=== PATIENT | female | born 1945 | race Caucasian/White ===

== ENCOUNTER → 2016-12-11 | Outpatient (CLI) | payer BC ==
[~2016-12-11] MED LIST: CHOL400C7 PO; CLTP PO; DRV100 PO; FLV1 PO; HYDR200T5 PO; META1TAB22 PO; METH2.5T PO; METHOTREXATE; NXM/40 PO; OXAP600T PO; PRED-301 PO; RANI150T3 PO; TIMO0.2528 OPB; TRAM-10 PO
[2016-12-11 16:45] LABS: BASO % 0.3 %; BASO ABS # 0.02 K/uL (0-0.2); COMPLETE YES; EOS % 3.5 %; HEMATOCRIT 36.1 % (37-47); IG% 0.1 %; LYMPH % 11.1 %; LYMPH ABS # 0.77 K/uL (1.2-3.4); MEAN CELL VOLUME 85.1 fL (80-100); MEAN CORPUSCULAR HEMOGLOBIN 26.4 pg (25-34); MONO % 5.4 %; NEUT % 79.6 %; PLATELET COUNT 270 K/uL (130-400); RED BLOOD COUNT 4.24 M/uL (4.2-5.4); WHITE BLOOD COUNT 6.91 K/uL (4.8-10.8)
[2016-12-11 17:04] LABS: ALT/SGPT 29 U/L (12-78); BLOOD UREA NITROGEN 28 mg/dl (7-18); BUN/CREATININE RATIO 30.8 (10-20); CALCIUM 8.9 mg/dl (8.5-10.1); CARBON DIOXIDE 28 mmol/L (21-32); CHLORIDE 105 mmol/L (98-107); CREATININE 0.91 mg/dl (0.60-1.20); GLUCOSE 117 mg/dl (70-99); POTASSIUM 4.3 mmol/L (3.5-5.1); SODIUM 142 mmol/L (136-145)
[2016-12-11 17:14] LABS: ALB/GLOB RATIO 1.1 (0.9-2); ALKALINE PHOSPHATASE 56 U/L (45-117); AST/SGOT 35 U/L (15-37)
[2016-12-12 05:53] LABS: ESTIMATED AVERAGE GLUCOSE 120 mg/dl; HA1C FLAG Normal (Normal)
== END | disposition home or self-care (01) ==
LOC: C.LAB1850 15:28
PROVIDERS: ATTEND Internal Medicine
DX: R60.0 Localized edema (principal); R73.03 Prediabetes; M06.9 Rheumatoid arthritis, unspecified; Z79.899 Other long term (current) drug therapy; Z79.52 Long term (current) use of systemic steroids; M77.40 Metatarsalgia, unspecified foot

== ENCOUNTER → 2017-02-06 | Outpatient (CLI) | payer BC ==
--- NOTE | 2017-02-06 15:41 | MAMMOGRAPHY REPORT ---
BILATERAL DIGITAL SCREENING MAMMOGRAM WITH CAD: 02/06/2017 TECHNIQUE: Current study was also evaluated with a Computer Aided Detection (CAD) system. Bilatera l CC and MLO views were obtained. COMPARISON: Comparison is made to exams dated: 01/18/2016 mammogram, 01/12/2015 mammogram, 01/06/2014 m ammogram, 12/15/2012 mammogram, 12/05/2011 mammogram, and 11/22/2010 mammogram - [facility] enter. BREAST COMPOSITION: There are scattered areas of fibroglandular density in both breasts. FINDINGS: No suspicious masses, calcifications, or areas of architectural distortion are noted in e ither breast. There has been no significant interval change compared to prior exams. Scattered bilat eral benign-appearing calcifications are not significantly changed. IMPRESSION: ACR BI-RADS CATEGORY 2: BENIGN There is no mammographic evidence of malignancy. A 1 year screening mammogram is recommended. The p atient will receive written notification of the results. Approximately 10% of breast cancers are not detected with mammography. A negative mammographic repor t should not delay biopsy if a clinically suggestive mass is present. Anna Marie Srinivasan M.D. ah/:02/06/2017 14:44:42 Reaming Machine Tender: Mariya HOWELL(Antonietta)(Gladis), [facility] letter sent: Normal 1/2 BI-RADS Code: ACR BI-RADS Category 2: Benign
== END | disposition home or self-care (01) ==
LOC: C.MAMM 11:48
PROVIDERS: ATTEND Obstetrics & Gynecology
DX: Z12.31 Encounter for screening mammogram for malignant neoplasm of breast (principal)

== ENCOUNTER → 2017-03-12 | Outpatient (CLI) | payer BC ==
[2017-03-12 17:42] LABS: BASO % 0.3 %; BASO ABS # 0.02 K/uL (0-0.2); COMPLETE YES; EOS % 2.8 %; HEMATOCRIT 36.8 % (37-47); IG% 0.3 %; LYMPH % 7.9 %; LYMPH ABS # 0.58 K/uL (1.2-3.4); MEAN CORPUSCULAR HEMOGLOBIN 26.7 pg (25-34); MEAN CORPUSCULAR HGB CONC 30.7 g/dl (32-36); MEAN PLATELET VOLUME 10.1 fL (7.4-10.4); NEUT % 82.7 %; PLATELET COUNT 278 K/uL (130-400); RED BLOOD COUNT 4.23 M/uL (4.2-5.4); WHITE BLOOD COUNT 7.37 K/uL (4.8-10.8)
[2017-03-12 18:10] LABS: ALT/SGPT 21 U/L (12-78); AST/SGOT 24 U/L (15-37); CREATININE 0.96 mg/dl (0.60-1.20)
[2017-03-12 18:13] LABS: ALKALINE PHOSPHATASE 53 U/L (45-117)
== END | disposition home or self-care (01) ==
LOC: C.LAB1850 15:42
PROVIDERS: ATTEND Internal Medicine Rheumatology
DX: M06.9 Rheumatoid arthritis, unspecified (principal); M89.8X6 Other specified disorders of bone, lower leg; Z79.52 Long term (current) use of systemic steroids; Z79.899 Other long term (current) drug therapy; R73.03 Prediabetes

== ENCOUNTER → 2017-05-26 | Day surgery (SDC) | payer BC ==
[2017-05-16 12:41] VITALS: BMI 40.0
[~2017-05-26] VITALS: Ht 154.9 cm; Wt 94.5 kg
[~2017-05-26] MED LIST changes: -DRV100 PO; +LIDOCAINE HCL 2% 2 ML VIAL (20MG/ML) ONE; -METHOTREXATE; +MIDAZOLAM HCL 1 MG/ML 2ML VIAL ONE; +PROPOFOL IV EMULSION 10 MG/ML 20 ML VIAL IV ONE; +SODIUM CHLORIDE 0.9% 500ML 500 ML IV ONE
[2017-05-26 09:54] VITALS: Ht 154.9 cm; Wt 94.5 kg
--- NOTE | 2017-05-26 10:12 | Endo History and Physical ---
History & Physical Date of Service: May 26, 2017. Chief Complaint: Hx polyps Referring Physician: Dr. Lo History of Present Illness 71 yo CF who presents for colonoscopy secondary to history of colon polyps. Past Surgical History Hx Cardiac Surgery: No Hx Internal Defibrillator: No Hx Pacemaker: No Hx Abdominal Surgery: No Hx of Implantable Prosthesis: No Hx Post-Op Nausea and Vomiting: No Hx Cancer Surgery: No Hx Thoracic Surgery: No Hx Orthopedic: Yes (L4-5-S1 DECOMPRESSION FUSION) Hx Urinary Tract Surgery: No Family History None Social History Smoking Status: Never Smoker Hx Substance Use: No Hx Alcohol Use: No Allergies Coded Allergies: Adhesives (Verified Allergy, Unknown, BLISTERS, 05/16/17) Uncoded Allergies: MYOCRISENE (Allergy, Unknown, SPACES HER OUT, 05/16/17) "GOLD SALT" Current Medications Reported Home Medications Medications Dose Route/Sig Max Daily Dose Days Date Category Dose Instructions Zantac (Ranitidine HCl) 150 Mg Tab 150 Mg PO DAILY PRN 05/16/17 Reported Vitamin D 400 Iu (Cholecalciferol) 400 Unit Cap 400 Inter.unit PO BID 05/16/17 Reported Ultram (Tramadol HCl) 50 Mg Tab 50 Mg PO Q4H PRN 05/16/17 Reported Methotrexate 2.5 Mg Tab 4 Tabs PO TUES 05/16/17 Reported Nexium (Esomeprazole Magnesium) 40 Mg Capcr 40 Mg PO QAM 05/16/17 Reported Plaquenil (Hydroxychloroquine Sulfate) 200 Mg Tab 200 Mg PO BID 05/16/17 Reported Daypro (Oxaprozin) 600 Mg Tab 600 Mg PO BID 05/16/17 Reported Timoptic 0.25% Oph (Timolol Maleate) Soln 1 Drop OPB QAM 06/17/08 Reported Caltrate 600 Plus * (Calcium/Vitamin D) Tab 1 Tab PO BID 06/17/08 Reported Folvite * (Folic Acid) 1 Mg Tab 1 Mg PO 6XWK 06/17/08 Reported SUN,MON,WED,THURS,FRI,SAT Skelaxin (Metaxalone) 800 Mg Tab 800 Mg PO QID PRN 06/17/08 Reported Prednisone 5 Mg Tab 5 Mg PO QAM 06/17/08 Reported Vital Signs Weight (Kilograms): 94.55 Height (Feet): 5 Height (Inches): 1 Date Time Temp Pulse Resp B/P (MAP) Pulse Ox O2 Delivery O2 Flow Rate FiO2 05/26/17 10:08 36.9 71 20 141/72 (95) 100 Room Air Physical Exam General Appearance: WD/WN, no apparent distress Respiratory/Chest: Auscultation: breath sounds normal Cardiovascular: Heart Auscultation: RRR Abdomen: Bowel Sounds: normal Inspection & Palpation: soft, non-distended, no tenderness, guarding & rebound Assessment and Plan Assessment: 71 yo CF who presents for colonoscopy secondary to history of colon polyps. Plan: Proceed with colonoscopy.
--- NOTE | 2017-05-26 10:51 | Discharge Instructions ---
Endoscopy Patient Instructions Date / Procedure(s) Performed May 26, 2017. Colonoscopy Allergy Information Coded Allergies: Adhesives (Verified Allergy, Unknown, BLISTERS, 05/16/17) Uncoded Allergies: MYOCRISENE (Allergy, Unknown, SPACES HER OUT, 05/16/17) "GOLD SALT" Discharge Date / Findings May 26, 2017. Diverticulosis Internal hemorrhoids Medication Instructions OK to resume all medications today as prescribed Reported Home Medications Medications Dose Route/Sig Max Daily Dose Days Date Category Dose Instructions Zantac (Ranitidine HCl) 150 Mg Tab 150 Mg PO DAILY PRN 05/16/17 Reported Vitamin D 400 Iu (Cholecalciferol) 400 Unit Cap 400 Inter.unit PO BID 05/16/17 Reported Ultram (Tramadol HCl) 50 Mg Tab 50 Mg PO Q4H PRN 05/16/17 Reported Methotrexate 2.5 Mg Tab 4 Tabs PO TUES 05/16/17 Reported Nexium (Esomeprazole Magnesium) 40 Mg Capcr 40 Mg PO QAM 05/16/17 Reported Plaquenil (Hydroxychloroquine Sulfate) 200 Mg Tab 200 Mg PO BID 05/16/17 Reported Daypro (Oxaprozin) 600 Mg Tab 600 Mg PO BID 05/16/17 Reported Timoptic 0.25% Oph (Timolol Maleate) Soln 1 Drop OPB QAM 06/17/08 Reported Caltrate 600 Plus * (Calcium/Vitamin D) Tab 1 Tab PO BID 06/17/08 Reported Folvite * (Folic Acid) 1 Mg Tab 1 Mg PO 6XWK 06/17/08 Reported SUN,MON,WED,THURS,FRI,SAT Skelaxin (Metaxalone) 800 Mg Tab 800 Mg PO QID PRN 06/17/08 Reported Prednisone 5 Mg Tab 5 Mg PO QAM 06/17/08 Reported Provider Instructions Activity Restrictions - No exercising or heavy lifting for 24 hours. - Do not drink alcohol the day of the procedure. - Do not drive a car or operate machinery until the day after the procedure. - Do not make any important decisions or sign important papers in 24 hours after the procedure. Following Day: - Return to full activity which may include returning to work/school. Diet Start your diet with liquids and light foods (jello, soup, juice, toast). Then eat your usual diet if not nauseated. Treatment For Common After Affects For mild abdominal pain, bloating, or excessive gas: - Rest - Eat lightly - Lie on right side Follow-Up Information Follow-up with Dr. Lo as scheduled Anesthesia Information What You Should Know You have had a procedure that required some medicine to reduce anxiety and discomfort. This treatment is called moderate sedation. After receiving the treatment, you may be sleepy, but you will be able to breathe on your own. The effects of the treatment may last for several hours. Follow these instructions along with Activity/Diet recommendations noted above: * Do NOT do anything where dizziness or clumsiness would be dangerous. * Rest quietly at home today, then you can be up and about tomorrow. * Have a responsible person stay with you the rest of today. * You may have had an I.V. today. If so, you may take the dressing off later today. Recommendations Call your doctor if: * Trouble breathing * Continuous vomiting for more than 24 hours * Temperature above 101 degrees * Severe abdominal pain or bloating * Pain not relieved by pain medicine ordered * There is increased drainage or redness from any incision * A large amount of rectal bleeding greater than 2-3 tablespoons. (If you had a polyp/s removed or have hemorrhoids, a small amount of blood - from the rectum is to be expected.) * You have any unanswered questions or concerns. IN THE EVENT OF A SERIOUS EMERGENCY, GO TO THE NEAREST EMERGENCY ROOM Your discharge instructions were prepared by provider Chauncey Snyder. Patient Instructions Signature Page Soni Dumont Patient (or Guardian) Signature/Date: I have read and understand the instructions given to me by my caregivers. Caregiver/RN/Doctor Signature/Date: The above-named patient and/or guardian has received patient instructions on this date. + Original Patient Signature Page (only) stays with chart. Please make copy for patient.
--- NOTE | 2017-05-26 11:00 | GI REPORT ---
Procedure Date: 05/26/2017 10:23 AM Procedure: Colonoscopy Indications: Screening for colorectal malignant neoplasm Medicines: Monitored Anesthesia Care Complications: No immediate complications. Estimated Blood Loss: Estimated blood loss: none. Procedure: Pre-Anesthesia Assessment: - Prior to the procedure, a History and Physical was performed, and patient medications and allergies were reviewed. The patient's tolerance of previous anesthesia was also reviewed. The risks and benefits of the procedure and the sedation options and risks were discussed with the patient. All questions were answered, and informed consent was obtained. Prior Anticoagulants: The patient has taken no previous anticoagulant or antiplatelet agents. ASA Grade Assessment: III - A patient with severe systemic disease. After reviewing the risks and benefits, the patient was deemed in satisfactory condition to undergo the procedure. After I obtained informed consent, the scope was passed under direct vision. Throughout the procedure, the patient's blood pressure, pulse, and oxygen saturations were monitored continuously. The On-site loaner was introduced through the anus and advanced to the terminal ileum. The colonoscopy was performed without difficulty. The patient tolerated the procedure well. The quality of the bowel preparation was good. The terminal ileum, ileocecal valve, appendiceal orifice, and rectum were photographed. Findings: Multiple small-mouthed diverticula were found in the sigmoid colon. Non-bleeding internal hemorrhoids were found during retroflexion. The hemorrhoids were small. Impression: - Diverticulosis in the sigmoid colon. - Non-bleeding internal hemorrhoids. - No specimens collected. Recommendation: - Resume previous diet. - Continue present medications. - No repeat colonoscopy due to age and the absence of advanced adenomas. - Return to primary care physician as previously scheduled. Chauncey Snyder DO 05/26/2017 10:59:05 AM This report has been signed electronically. Note Initiated On: 05/26/2017 10:23 AM I attest to the content of the Intraoperative Record and orders documented therein, exceptions below
[2017-05-26 11:26] VITALS: BP 119/75; PULSE 77; O2SAT 99
--- NOTE | 2017-05-26 11:40 | Anesthesiology Progress Note ---
Anesthesia Post Op Note Date & Time May 26, 2017 at 11:40 Vital Signs Pain Intensity: 0 Vital Signs Past 12 Hours Date Time Temp Pulse Resp B/P (MAP) Pulse Ox O2 Delivery O2 Flow Rate FiO2 05/26/17 11:26 77 20 119/75 (90) 99 Room Air 05/26/17 11:06 77 20 111/79 (90) 99 Room Air 05/26/17 10:51 77 20 134/72 (92) 99 Room Air 05/26/17 10:08 36.9 71 20 141/72 (95) 100 Room Air Notes Mental Status: alert / awake / arousable, participated in evaluation Pt Amnestic to Procedure: Yes Nausea / Vomiting: adequately controlled Pain: adequately controlled Airway Patency, RR, SpO2: stable & adequate BP & HR: stable & adequate Hydration State: stable & adequate Anesthetic Complications: no major complications apparent
== END | disposition home or self-care (01) ==
LOC: C.GI 09:38
PROVIDERS: ATTEND Internal Medicine
DX: Z12.11 Encounter for screening for malignant neoplasm of colon (principal); K57.30 Diverticulosis of large intestine without perforation or abscess without bleeding; K64.8 Other hemorrhoids; Z86.010 Personal history of colon polyps; Z79.899 Other long term (current) drug therapy

== ENCOUNTER → 2017-06-04 | Outpatient (CLI) | payer BC ==
[~2017-06-04] MED LIST changes: -LIDOCAINE HCL 2% 2 ML VIAL (20MG/ML) ONE; -MIDAZOLAM HCL 1 MG/ML 2ML VIAL ONE; -PROPOFOL IV EMULSION 10 MG/ML 20 ML VIAL IV ONE; -SODIUM CHLORIDE 0.9% 500ML 500 ML IV ONE
[2017-06-04 12:38] LABS: CHOLESTEROL/HDL RATIO 3.1
== END | disposition home or self-care (01) ==
LOC: C.LAB1850 09:07
PROVIDERS: ATTEND Internal Medicine
DX: R73.03 Prediabetes (principal)

== ENCOUNTER → 2017-08-12 | Outpatient (CLI) | payer BC ==
[2017-08-12 12:23] LABS: BASO % 0.3 %; BASO ABS # 0.02 K/uL (0-0.2); COMPLETE YES; EOS % 3.5 %; HEMATOCRIT 35.4 % (37-47); IG% 0.3 %; LYMPH % 11.2 %; LYMPH ABS # 0.86 K/uL (1.2-3.4); MEAN CELL VOLUME 86.3 fL (80-100); MEAN CORPUSCULAR HEMOGLOBIN 27.1 pg (25-34); MEAN CORPUSCULAR HGB CONC 31.4 g/dl (32-36); NEUT % 71.7 %; PLATELET COUNT 290 K/uL (130-400); WHITE BLOOD COUNT 7.69 K/uL (4.8-10.8)
[2017-08-12 12:28] LABS: ALT/SGPT 29 U/L (12-78); CREATININE 0.93 mg/dl (0.60-1.20)
[2017-08-12 12:31] LABS: ALKALINE PHOSPHATASE 55 U/L (45-117); AST/SGOT 26 U/L (15-37)
== END | disposition home or self-care (01) ==
LOC: C.LAB1850 10:49
PROVIDERS: ATTEND Internal Medicine Rheumatology
DX: M06.9 Rheumatoid arthritis, unspecified (principal); Z51.81 Encounter for therapeutic drug level monitoring; Z79.899 Other long term (current) drug therapy; Z79.52 Long term (current) use of systemic steroids; M79.646 Pain in unspecified finger(s); R73.03 Prediabetes; M51.36 Other intervertebral disc degeneration, lumbar region

== ENCOUNTER → 2017-08-25 | Outpatient (CLI) | payer BC ==
[2017-08-25 15:30] LABS: BLOOD UREA NITROGEN 30 mg/dl (7-18); CREATININE 0.81 mg/dl (0.60-1.20)
== END | disposition home or self-care (01) ==
LOC: C.LAB1850 13:13
PROVIDERS: ATTEND Orthopaedic Surgery Orthopaedic Surgery of the Spine
DX: Z01.812 Encounter for preprocedural laboratory examination (principal)

== ENCOUNTER → 2017-10-30 | Outpatient (CLI) | payer BC | END | disposition home or self-care (01) | LOC: C.PAPS 15:09 | PROVIDERS: ATTEND Obstetrics & Gynecology | DX: Z01.419 Encounter for gynecological examination (general) (routine) without abnormal findings (principal) ==

== ENCOUNTER → 2018-02-02 | Outpatient (CLI) | payer BC ==
[2018-02-02 14:36] LABS: BASO % 0.5 %; BASO ABS # 0.03 K/uL (0-0.2); EOS % 4.4 %; EOS ABS # 0.28 K/uL (0-0.5); HEMATOCRIT 35.6 % (37-47); HEMOGLOBIN 10.9 g/dL (12.0-16.0); IG# 0.02 K/uL (0.00-0.02); LYMPH % 14.4 %; LYMPH ABS # 0.92 K/uL (1.2-3.4); MEAN CORPUSCULAR HEMOGLOBIN 26.7 pg (25-34); MEAN CORPUSCULAR HGB CONC 30.6 g/dl (32-36); MEAN PLATELET VOLUME 10.2 fL (7.4-10.4); MONO % 7.7 %; MONO ABS # 0.49 K/uL (0.11-0.59); NEUT % 72.7 %; NEUT ABS # 4.64 K/uL (1.4-6.5); PLATELET COUNT 287 K/uL (130-400); RED CELL DISTRIBUTION WIDTH CV 19.4 % (11.5-14.5); WHITE BLOOD COUNT 6.38 K/uL (4.8-10.8)
[2018-02-02 15:06] LABS: ALBUMIN 3.5 gm/dl (3.4-5.0); CREATININE 1.01 mg/dl (0.60-1.20)
[2018-02-02 15:09] LABS: ALKALINE PHOSPHATASE 62 U/L (45-117); ALT/SGPT 22 U/L (12-78); AST/SGOT 26 U/L (15-37); TOTAL PROTEIN 6.9 gm/dl (6.4-8.2)
== END | disposition home or self-care (01) ==
LOC: C.LAB1850 13:47
PROVIDERS: ATTEND Internal Medicine Rheumatology
DX: M06.9 Rheumatoid arthritis, unspecified (principal); Z79.899 Other long term (current) drug therapy; M47.816 Spondylosis without myelopathy or radiculopathy, lumbar region

== ENCOUNTER → 2018-02-12 | Outpatient (CLI) | payer BC ==
--- NOTE | 2018-02-13 15:37 | MAMMOGRAPHY REPORT ---
BILATERAL DIGITAL SCREENING MAMMOGRAM TOMOSYNTHESIS WITH CAD: 02/12/2018 CLINICAL HISTORY: Routine screening. Patient has no complaints. TECHNIQUE: Breast tomosynthesis in addition to standard 2D mammography was performed. Current study was also evaluated with a Computer Aided Detection (CAD) system. COMPARISON: Comparison is made to exams dated: 02/06/2017 mammogram, 01/18/2016 mammogram, 01/12/2015 ma mmogram, 01/06/2014 mammogram, 12/15/2012 mammogram, and 12/05/2011 mammogram - [facility]. BREAST COMPOSITION: There are scattered areas of fibroglandular density in both breasts. FINDINGS: No suspicious masses, calcifications, or areas of architectural distortion are noted in ei ther breast. There has been no significant interval change compared to prior exams. Scattered bilater al benign-appearing calcifications are not significantly changed. IMPRESSION: ACR BI-RADS CATEGORY 2: BENIGN There is no mammographic evidence of malignancy. A 1 year screening mammogram is recommended. The pa tient will receive written notification of the results. Approximately 10% of breast cancers are not detected with mammography. A negative mammographic report should not delay biopsy if a clinically suggestive mass is present. Anna Marie Srinivasan M.D. /:02/12/2018 16:31:06 Kitchen Helper: Mariya Mao, [facility] letter sent: Normal 1/2 BI-RADS Code: ACR BI-RADS Category 2: Benign
== END | disposition home or self-care (01) ==
LOC: C.MAMM 10:54
PROVIDERS: ATTEND Obstetrics & Gynecology
DX: Z12.31 Encounter for screening mammogram for malignant neoplasm of breast (principal)

== ENCOUNTER 2020-11-29 13:36 | Inpatient (IN) ==
[2020-11-29] MEDS ORDERED: SODIUM CHLORIDE 0.9% 1000ML 500 ML IV ONE (14:06)
[2020-11-29] MEDS ORDERED: ACETAMINOPHEN 325 MG TAB PO STA (14:06)
[2020-11-29] MEDS ORDERED: cefTRIAXone SODIUM 1,000 MG/50 ML BAG IV STA (14:08)
--- NOTE | 2020-11-29 14:16 | Emergency Department Note ---
Impression & Plan Hypoxia, Multifocal pneumonia, Elevated troponin, Anemia, Leukopenia ED Provider Note NAME: MILLY FISHER AGE: 75 SEX: F : 1945 ARRIVES VIA: Ambulance INFORMANT: Patient, ED PROVIDER(S): Danie Champion DO CHIEF COMPLAINT: Shortness of breath and cough HPI: Patient is a 75-year-old female who presents the ER for shortness of breath and cough. Her symptoms started over a week ago. She was diagnosed with bronchitis at that time. She has a cough, runny nose, sore throat and congestion. She admits to a dull chest ache which has been present for the past week as well as shortness of breath which has been worsening. Denies any belly pain. Does admit to diarrhea. No loss of taste or smell. No dysuria, urgency or frequency. She was tested for Covid on Friday and was negative. No history of COPD or heart failure that she is aware of. No other exacerbating or remitting factors. ROS: See above HPI for pertinent positives & negatives. A total of 10 systems reviewed and were otherwise negative. PAST MEDICAL HISTORY:See Below PAST SURGICAL HISTORY:See Below FAMILY HISTORY:See Below SOCIAL HISTORY:See Below HOME MEDICATIONS:See Below ALLERGIES:See Below VITALS:See Below PHYSICAL EXAMINATION: GENERAL: Sitting up in bed, alert, ill-appearing, disheveled, mild distress EYE EXAM: normal conjunctiva. OROPHARYNX: no exudate, no erythema, lips, buccal mucosa, and tongue normal and mucous membranes are moist NECK: supple, no nuchal rigidity, no adenopathy, non-tender LUNGS: Diminished bilaterally. Normal chest wall mechanics HEART: no murmurs, S1 normal and S2 normal ABDOMEN: abdomen soft, non-tender, normo-active bowel sounds, no masses, no rebound or guarding. UPPER EXTREMITIES: upper extremities are grossly normal. LOWER EXTREMITIES: No pitting edema. NEURO EXAM: Normal sensorium, cranial nerves II-XII grossly intact, normal speech, no gross weakness of arms, no gross weakness of legs. MEDICAL DECISION MAKING: Patient is a 75-year-old female who presents the ER for shortness of breath associated with cough and feeling weak and rundown. IV was established blood work was obtained. Labs showed leukopenia of 1.9 which is new from previous. Hemoglobin was down from 10-8.7. VBG with a pH of 7.43. BMP was fairly unremarkable as well as bilirubin LFTs. Troponin was elevated at 0.4. proBNP was elevated 2500. Procalcitonin was normal. Urine did have nitrates as well as leuks and epithelial cells and bilirubin. She did not have any urinary symptoms. Question if the nitrates are secondary to the elevation in the bilirubin. Other rate patient was covered with IV antibiotics. She remained on 3 L nasal cannula throughout her stay in the ER. Covid was negative. CT angio of the chest shows no PEs but multifocal infiltrate. She was updated bedside and admitted to the hospital for further work-up. Triage Nursing notes reviewed. Limited review of prior medical records performed Vital Signs: reviewed and remarkable for febrile, tacky and tachypneic Differential diagnosis: Differential diagnosis includes etiologies such as sepsis, UTI, pneumonia, metabolic, electrolyte abnormalities, cardiac sources, intracerebral event, toxicologic, neurological, as well as others were entertained. ER treatment provided: See below Diagnostics interpreted by me: ECG: Sinus tachycardia rate of 112 Durable baseline QTC [address] wave changes anterior and possibly lateral leads but difficult to interpret otherwise EKG #2 Sinus rhythm rate 87 Normal axis Poor baseline inferior leads QTC 459 Cardiac Monitoring: An order was placed for continuous cardiac monitoring. The monitor shows a rate of 82 with sinus rhythm. Laboratory studies: As stated above and show below. Imaging studies: Portable AP upright 1 view of the chest shows multifocal pneumonia CT angio of the chest shows no PEs but ultimately focal opacities/infiltrates Consultation(s): Discussed with Dr. Sergey Salazar for further evaluation Procedures: none Critical Care: I have personally spent 40 minutes of critical care time in the direct management of this patient. This includes bedside care, interpretation of diagnostic studies, and testing, discussion with consultants, patient, and family members, and other required patient management activities. This 40 minutes is in excess of all separately billable procedures. 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, lumbar region Surgical History History of back surgery Hx of cataract surgery Family History Sister Breast cancer Uterine cancer Family/Other Breast cancer Mother Breast cancer Daughter Breast cancer Brother Glioblastoma multiforme of brain Father Heart disease Myocardial infarction Denies family history of Ovarian cancer Prostate cancer Colorectal cancer Social History Smoking Status: Never smoker Second Hand Exposure: No; Hx Alcohol Use: No Hx Substance Use: No Preferred Language: Yoruba Communication Ability: Effective Flight Technician Required: No Beliefs That Will Affect Care: None marital status: Current Living Situation: Spouse current occupational status: employed current occupation: [employer] Other Information That Helps Us Care for You: No Feels Safe at Home: Yes Safety Concerns: Feels Safe At This Time Seatbelt Use: always Assistive Devices: Hearing Aid - Bilateral and Walker Allergies Allergies Allergy/AdvReac Type Severity Reaction Status Date / Time adhesive Allergy Unknown BLISTERS Verified 11/29/20 16:09 Gold Salts Allergy Unknown Unknown Uncoded 11/29/20 16:09 MYOCRISENE Allergy Unknown SPACES HER Uncoded 11/29/20 16:09 OUT Home Meds Home Medications Medication Instructions Recorded Confirmed calcium carbonate 600 mg(1,500 1 tab PO BID 06/15/19 11/29/20 mg)-vitamin D3 800 unit chewable tablet cholecalciferol (vitamin D3) 25 2,000 units PO DAILY #60 cap 06/15/19 11/29/20 mcg (1,000 unit) capsule oxaprozin 600 mg tablet 600 mg PO BID #180 tab 06/15/19 11/29/20 prednisone 5 mg tablet 5 mg PO QAM #90 tab 06/15/19 11/29/20 metaxalone 800 mg tablet 800 mg PO TID PRN tab 09/20/20 11/29/20 timolol maleate 0.5 % eye drops 1 drp OP .24hrs ml 09/20/20 11/29/20 diclofenac sodium 4 g TOPICAL QID PRN 11/29/20 11/29/20 fluticasone propionate 2 sprays INTRANASAL DAILY PRN 11/29/20 11/29/20 upadacitinib [Rinvoq] 15 mg PO DAILY 11/29/20 11/29/20 Previous Rx's Medication Instructions Recorded hydrocortisone 2.5 % topical cream 1 appln SC DAILY PRN #30 gm 02/17/20 with perineal applicator folic acid 1 mg tablet 1 mg PO 6XWK #90 tab 07/27/20 methotrexate sodium 2.5 mg tablet 15 mg PO WEEKLY #72 tab 07/27/20 Wheeled Walker #1 ea 08/22/20 esomeprazole magnesium 40 mg 40 mg PO QAM #90 cap 08/22/20 capsule,delayed release codeine 10 mg-guaifenesin 100 mg/5 5 ml PO Q6H PRN #118 ml 11/21/20 mL oral liquid benzonatate 200 mg capsule 200 mg PO TID PRN #30 cap 11/28/20 Results & Data (ED) Vital Signs Vital Signs - 24 hr 11/29/20 13:48 11/29/20 13:58 11/29/20 14:36 Temperature 38.2 C H Temperature Source Oral Pulse Rate 115 H Pulse Rate [Left Finger] 101 H Respiratory Rate 26 H 22 Blood Pressure 136/70 Blood Pressure [Right Arm] 144/69 H Blood Pressure Mean 92 Blood Pressure Mean [Right Arm] 94 Pulse Oximetry 80 L 98 97 Oxygen Delivery Method Room Air Nasal Cannula Nasal Cannula Oxygen Flow Rate 4 4 Sepsis Recent Fever Within 48 Hours Yes Sepsis New/Unexplained Change in Mental Status N/A Sepsis Action Taken by Nursing Physician Notified 11/29/20 15:00 11/29/20 15:46 11/29/20 16:00 Temperature 37.4 C Temperature Source Oral Pulse Rate 92 H 87 Pulse Rate [Left Finger] Respiratory Rate 22 20 Blood Pressure 117/63 119/58 L Blood Pressure [Right Arm] Blood Pressure Mean 81 78 Blood Pressure Mean [Right Arm] Pulse Oximetry 98 99 Oxygen Delivery Method Nasal Cannula Nasal Cannula Oxygen Flow Rate 4 4 Sepsis Recent Fever Within 48 Hours Sepsis New/Unexplained Change in Mental Status Sepsis Action Taken by Nursing 11/29/20 16:30 Temperature Temperature Source Pulse Rate 82 Pulse Rate [Left Finger] Respiratory Rate 24 Blood Pressure 124/60 Blood Pressure [Right Arm] Blood Pressure Mean 81 Blood Pressure Mean [Right Arm] Pulse Oximetry 100 Oxygen Delivery Method Nasal Cannula Oxygen Flow Rate 4 Sepsis Recent Fever Within 48 Hours Sepsis New/Unexplained Change in Mental Status Sepsis Action Taken by Nursing Laboratory Data Result diagrams: 11/29/20 14:16 11/29/20 14:16 Lab Results 11/29/20 11/29/20 11/29/20 Range/Units 14:16 14:16 14:16 WBC 1.98 L (4.8-10.8) K/uL RBC 3.13 L (4.2-5.4) M/uL Hgb 8.7 L (12.0-16.0) g/dL Hct 27.8 L (37-47) % MCV 88.8 (80-100) fL MCH 27.8 (25-34) pg MCHC 31.3 L (32-36) g/dL RDW Std Deviation 74.4 H (36.4-46.3) fL RDW Coeff of Tenisha 23.2 H (11.5-14.5) % Plt Count 137 (130-400) K/uL MPV 8.6 (7.4-10.4) fL Immature Gran % (Auto) 1.0 % Neut % (Auto) 63.2 % Lymph % (Auto) 31.3 % [place] % (Auto) 3.0 % Eos % (Auto) 1.0 % Baso % (Auto) 0.5 % Neut # (Auto) 1.25 L (1.4-6.5) K/uL Lymph # (Auto) 0.62 L (1.2-3.4) K/uL [place] # (Auto) 0.06 L (0.11-0.59) K/uL Eos # (Auto) 0.02 (0-0.5) K/uL Baso # (Auto) 0.01 (0-0.2) K/uL Immature Gran # (Auto) 0.02 (0.00-0.02) K/uL Giant Platelets 1+ Anisocytosis Present VBG pH (7.36-7.41) VBG pCO2 (38-50) mmHg VBG pO2 mmHg VBG HCO3 mmol/L VBG O2 Saturation % VBG Base Excess mEq/L Barometric Pressure mm/Hg Sodium 137 (136-145) mmol/L Potassium 3.6 (3.5-5.1) mmol/L Chloride 103 (98-107) mmol/L Carbon Dioxide 25 (21-32) mmol/L Anion Gap 9.0 (3-11) BUN 29 H (7-18) mg/dl Creatinine 0.95 (0.6-1.2) mg/dl Est Cr Clr Drug Dosing 49.0 ml/min Est GFR ( Amer) 67.9 Est GFR (Non-Af Amer) 58.6 BUN/Creatinine Ratio 30.8 H (10-20) Glucose 96 (70-99) mg/dl Lactate (0.4-2.0) mmol/L Calcium 9.2 (8.5-10.1) mg/dl Magnesium 1.9 (1.8-2.4) mg/dl Total Bilirubin 0.5 (0.2-1) mg/dl AST 31 (15-37) U/L ALT 21 (12-78) U/L Alkaline Phosphatase 53 (45-117) U/L Troponin I 0.400 H* (0-0.045) ng/ml NT-Pro-B Natriuret Pep 2542 H (0-900) pg/ml Total Protein 5.8 L (6.4-8.2) gm/dl Albumin 2.3 L (3.4-5.0) gm/dl Globulin 3.5 (2.5-4.0) gm/dl Albumin/Globulin Ratio 0.7 L (0.9-2) Procalcitonin 0.42 (0-0.5) ng/ml Urine Color Urine Appearance (Clear) Urine pH (4.5-7.5) Ur Specific [place] (1.000-1.030) Urine Protein (Negative) Urine Glucose (UA) (Negative) Urine Ketones (Negative) Urine Blood (Negative) Urine Nitrite (Negative) Urine Bilirubin (Negative) Urine Urobilinogen (Negative) Ur Leukocyte Esterase (Negative) Urine WBC (Auto) (0-5) /hpf Urine RBC (Auto) (0-4) /hpf U Hyaline Cast (Auto) (0-5) /lpf U Epithel Cells (Auto) (0-5) /lpf Urine Bacteria (Auto) (Negative) Ur Renal Epithelial Cell Granular Casts (0) /lpf COVID-19 Eval Order SARS-CoV-2 (PCR) (Negative) Influenza Type A (PCR) (Neg) Influenza Type B (PCR) (Neg) RSV (RT-PCR) (Neg) 11/29/20 11/29/20 11/29/20 Range/Units 14:22 14:22 14:25 WBC (4.8-10.8) K/uL RBC (4.2-5.4) M/uL Hgb (12.0-16.0) g/dL Hct (37-47) % MCV (80-100) fL MCH (25-34) pg MCHC (32-36) g/dL RDW Std Deviation (36.4-46.3) fL RDW Coeff of Tenisha (11.5-14.5) % Plt Count (130-400) K/uL MPV (7.4-10.4) fL Immature Gran % (Auto) % Neut % (Auto) % Lymph % (Auto) % [place] % (Auto) % Eos % (Auto) % Baso % (Auto) % Neut # (Auto) (1.4-6.5) K/uL Lymph # (Auto) (1.2-3.4) K/uL [place] # (Auto) (0.11-0.59) K/uL Eos # (Auto) (0-0.5) K/uL Baso # (Auto) (0-0.2) K/uL Immature Gran # (Auto) (0.00-0.02) K/uL Giant Platelets Anisocytosis VBG pH 7.43 H (7.36-7.41) VBG pCO2 39 (38-50) mmHg VBG pO2 41 mmHg VBG HCO3 26 mmol/L VBG O2 Saturation 74.3 % VBG Base Excess 1.3 mEq/L Barometric Pressure 736.3 mm/Hg Sodium (136-145) mmol/L Potassium (3.5-5.1) mmol/L Chloride (98-107) mmol/L Carbon Dioxide (21-32) mmol/L Anion Gap (3-11) BUN (7-18) mg/dl Creatinine (0.6-1.2) mg/dl Est Cr Clr Drug Dosing ml/min Est GFR ( Amer) Est GFR (Non-Af Amer) BUN/Creatinine Ratio (10-20) Glucose (70-99) mg/dl Lactate 1.5 (0.4-2.0) mmol/L Calcium (8.5-10.1) mg/dl Magnesium (1.8-2.4) mg/dl Total Bilirubin (0.2-1) mg/dl AST (15-37) U/L ALT (12-78) U/L Alkaline Phosphatase (45-117) U/L Troponin I (0-0.045) ng/ml NT-Pro-B Natriuret Pep (0-900) pg/ml Total Protein (6.4-8.2) gm/dl Albumin (3.4-5.0) gm/dl Globulin (2.5-4.0) gm/dl Albumin/Globulin Ratio (0.9-2) Procalcitonin (0-0.5) ng/ml Urine Color Urine Appearance (Clear) Urine pH (4.5-7.5) Ur Specific [place] (1.000-1.030) Urine Protein (Negative) Urine Glucose (UA) (Negative) Urine Ketones (Negative) Urine Blood (Negative) Urine Nitrite (Negative) Urine Bilirubin (Negative) Urine Urobilinogen (Negative) Ur Leukocyte Esterase (Negative) Urine WBC (Auto) (0-5) /hpf Urine RBC (Auto) (0-4) /hpf U Hyaline Cast (Auto) (0-5) /lpf U Epithel Cells (Auto) (0-5) /lpf Urine Bacteria (Auto) (Negative) Ur Renal Epithelial Cell Granular Casts (0) /lpf COVID-19 Eval Order CovFluRsv at [facility] SARS-CoV-2 (PCR) (Negative) Influenza Type A (PCR) (Neg) Influenza Type B (PCR) (Neg) RSV (RT-PCR) (Neg) 11/29/20 11/29/20 Range/Units 14:25 14:30 WBC (4.8-10.8) K/uL RBC (4.2-5.4) M/uL Hgb (12.0-16.0) g/dL Hct (37-47) % MCV (80-100) fL MCH (25-34) pg MCHC (32-36) g/dL RDW Std Deviation (36.4-46.3) fL RDW Coeff of Tenisha (11.5-14.5) % Plt Count (130-400) K/uL MPV (7.4-10.4) fL Immature Gran % (Auto) % Neut % (Auto) % Lymph % (Auto) % [place] % (Auto) % Eos % (Auto) % Baso % (Auto) % Neut # (Auto) (1.4-6.5) K/uL Lymph # (Auto) (1.2-3.4) K/uL [place] # (Auto) (0.11-0.59) K/uL Eos # (Auto) (0-0.5) K/uL Baso # (Auto) (0-0.2) K/uL Immature Gran # (Auto) (0.00-0.02) K/uL Giant Platelets Anisocytosis VBG pH (7.36-7.41) VBG pCO2 (38-50) mmHg VBG pO2 mmHg VBG HCO3 mmol/L VBG O2 Saturation % VBG Base Excess mEq/L Barometric Pressure mm/Hg Sodium (136-145) mmol/L Potassium (3.5-5.1) mmol/L Chloride (98-107) mmol/L Carbon Dioxide (21-32) mmol/L Anion Gap (3-11) BUN (7-18) mg/dl Creatinine (0.6-1.2) mg/dl Est Cr Clr Drug Dosing ml/min Est GFR ( Amer) Est GFR (Non-Af Amer) BUN/Creatinine Ratio (10-20) Glucose (70-99) mg/dl Lactate (0.4-2.0) mmol/L Calcium (8.5-10.1) mg/dl Magnesium (1.8-2.4) mg/dl Total Bilirubin (0.2-1) mg/dl AST (15-37) U/L ALT (12-78) U/L Alkaline Phosphatase (45-117) U/L Troponin I (0-0.045) ng/ml NT-Pro-B Natriuret Pep (0-900) pg/ml Total Protein (6.4-8.2) gm/dl Albumin (3.4-5.0) gm/dl Globulin (2.5-4.0) gm/dl Albumin/Globulin Ratio (0.9-2) Procalcitonin (0-0.5) ng/ml Urine Color Dark Yellow Urine Appearance Cloudy A (Clear) Urine pH 5.0 (4.5-7.5) Ur Specific [place] 1.024 (1.000-1.030) Urine Protein 1+ H (Negative) Urine Glucose (UA) Negative (Negative) Urine Ketones 1+ H (Negative) Urine Blood Negative (Negative) Urine Nitrite Positive A (Negative) Urine Bilirubin 2+ H (Negative) Urine Urobilinogen Negative (Negative) Ur Leukocyte Esterase Trace H (Negative) Urine WBC (Auto) 5-10 H (0-5) /hpf Urine RBC (Auto) 0-4 (0-4) /hpf U Hyaline Cast (Auto) 5-10 H (0-5) /lpf U Epithel Cells (Auto) >30 H (0-5) /lpf Urine Bacteria (Auto) Negative (Negative) Ur Renal Epithelial Cell Not Reportable Granular Casts 1-5 H (0) /lpf COVID-19 Eval Order SARS-CoV-2 (PCR) NEGATIVE (Negative) Influenza Type A (PCR) Negative (Neg) Influenza Type B (PCR) Negative (Neg) RSV (RT-PCR) Negative (Neg) Administered Medications Discontinued Medications Acetaminophen (Acetaminophen 325 Mg Tab) 650 mg PO NOW STA Stop: 11/29/20 14:07 Last Admin: 11/29/20 14:42 Dose: 650 mg Documented by: [id number] Azithromycin (Azithromycin 250 Mg Tab) 500 mg PO NOW ONE Stop: 11/29/20 15:26 Last Admin: 11/29/20 15:45 Dose: 500 mg Documented by: [id number] Ceftriaxone Sodium (Ceftriaxone Sodium 1000mg/50ml D5w) Confirm Administered Dose 1,000 mg IV .STK-MED ONE Stop: 11/29/20 17:12 Last Admin: 11/29/20 17:13 Dose: 1,000 mg Documented by: [id number] Admin: 11/29/20 17:13 Dose: Not Given Documented by: [id number] Sodium Chloride (Nss 1000ml) 500 mls @ 999 mls/hr IV .Q31M ONE Stop: 11/29/20 14:36 Last Infusion: 11/29/20 15:18 Dose: 0 mls/hr Documented by: [id number] Admin: 11/29/20 14:47 Dose: 999 mls/hr Documented by: [id number] Ceftriaxone Sodium (Rocephin) 1,000 mg in 50 mls @ 100 mls/hr IV NOW STA Stop: 11/29/20 14:37 Last Infusion: 11/29/20 15:17 Dose: 0 mls/hr Documented by: [id number] Admin: 11/29/20 14:47 Dose: 100 mls/hr Documented by: [id number] Sodium Chloride (Nss 1000ml) 1,000 mls @ 999 mls/hr IV .Q1H1M ONE Stop: 11/29/20 16:26 Last Infusion: 11/29/20 16:46 Dose: 0 mls/hr Documented by: [id number] Admin: 11/29/20 15:45 Dose: 999 mls/hr Documented by: [id number] Ceftriaxone Sodium 1,000 mg/ (Dextrose) 50 mls @ 100 mls/hr IV ONE ONE; Protocol Stop: 11/29/20 17:14 Last Infusion: 11/29/20 18:09 Dose: 0 mls/hr Documented by: [id number] Admin: 11/29/20 17:13 Dose: 100 mls/hr Documented by: [id number] Ioversol (Optiray 320 125ml) 119 ml IV ONCE ONE Stop: 11/29/20 15:32 Last Admin: 11/29/20 15:31 Dose: 119 ml Documented by: [id number] Discharge Plan Visit Data Chief Complaint: Cough ED Provider: Danie Champion Discharge Problem: Hypoxia, Multifocal pneumonia, Elevated troponin, Anemia, Leukopenia Patient Disposition: Admitted As Inpatient Discharge Instructions Interventions: ED Discharge Assessment Last Done: 11/29/20 17:38 Discharge Problem: Anemia Qualifiers: Anemia type: unspecified type Qualified Code(s): D64.9 - Anemia, unspecified Leukopenia Qualifiers: Leukopenia type: unspecified Qualified Code(s): D72.819 - Decreased white blood cell count, unspecified
[2020-11-29 14:37] LABS: Basophils # (auto) 0.01 K/uL (0-0.2); Basophils % (auto) 0.5 %; Eosinophils # (auto) 0.02 K/uL (0-0.5); Hematocrit (blood only) 27.8 % (37-47); Hemoglobin 8.7 g/dL (12.0-16.0); Immature Granulocytes # (auto) 0.02 K/uL (0.00-0.02); Lymphocytes # (auto) 0.62 K/uL (1.2-3.4); Lymphocytes % (auto) 31.3 %; Mean Corpuscular Hemoglobin 27.8 pg (25-34); Mean Corpuscular Hgb Conc 31.3 g/dL (32-36); Mean Corpuscular Volume 88.8 fL (80-100); Mean Platelet Volume 8.6 fL (7.4-10.4); Monocytes # (auto) 0.06 K/uL (0.11-0.59); Neutrophils # (auto) 1.25 K/uL (1.4-6.5); Neutrophils % (auto) 63.2 %; Platelet Count 137 K/uL (130-400); RDW Coefficient of Variation 23.2 % (11.5-14.5); RDW Standard Deviation 74.4 fL (36.4-46.3); Red Blood Count 3.13 M/uL (4.2-5.4); White Blood Count 1.98 K/uL (4.8-10.8)
[2020-11-29 14:44] LABS: Appearance Urine Cloudy (Clear); Bacteria Urine Automated Negative (Negative); Blood Urine Negative (Negative); Color Urine Dark Yellow; Epithelial Cell Urine Auto >30 /lpf (0-5); Glucose Urine UA Negative (Negative); Ketones Urine 1+ (Negative); Leukocyte Esterase Urine Trace (Negative); Nitrite Urine Positive (Negative); Protein Urine 1+ (Negative); RBC Urine Automated 0-4 /hpf (0-4); Specific Gravity Urine 1.024 (1.000-1.030); Urobilinogen Urine Negative (Negative)
[2020-11-29 14:47] LABS: Base Excess VBG 1.3 mEq/L; Oxygen Saturation VBG 74.3 %; pH VBG 7.43 (7.36-7.41)
[2020-11-29 14:56] LABS: Bilirubin Urine 2+ (Negative)
[2020-11-29 15:00] LABS: Anisocytosis Present; Giant Platelets 1+
[2020-11-29 15:11] LABS: Albumin Level 2.3 gm/dl (3.4-5.0); BUN Creatinine Ratio 30.8 (10-20); Calcium 9.2 mg/dl (8.5-10.1); Est GFR (African American) 67.9; Est GFR (Non-African American) 58.6; Magnesium 1.9 mg/dl (1.8-2.4); Potassium 3.6 mmol/L (3.5-5.1)
--- NOTE | 2020-11-29 15:14 | XRay Report ---
XR chest 1V portable HISTORY: 75 years-old Female SEPSIS acute sepsis COMPARISON: Chest and rib radiographs 11/22/2019 TECHNIQUE: Portable AP view the chest FINDINGS: Cardiac silhouette is mildly enlarged. Interval development of moderate bilateral patchy airspace opa cities. Mild blunting of the costophrenic angles. No pneumothorax. Degenerative changes of the should ers and spine. IMPRESSION: Moderate bilateral airspace opacities suggest multifocal pneumonia. ACT 112: Negative or not required by law. The above report was generated using voice recognition software. It may contain grammatical, syntax o r spelling errors. Electronically signed by: Luis Merrill M.D. 11/29/2020 3:13 PM
[2020-11-29 15:16] LABS: Influenza A virus by PCR Negative (Neg); Influenza B virus by PCR Negative (Neg); RSV by PCR Negative (Neg); SARS CoV2 RNA(COVID-19) InHosp NEGATIVE (Negative)
[2020-11-29 15:21] LABS: Albumin Globulin Ratio 0.7 (0.9-2); Bilirubin,Total 0.5 mg/dl (0.2-1); Globulin 3.5 gm/dl (2.5-4.0); Total Protein 5.8 gm/dl (6.4-8.2); Troponin I 0.4 ng/ml (0-0.045)
[2020-11-29] MEDS ORDERED: AZITHROMYCIN 250 MG TAB PO ONE (15:25)
[2020-11-29] MEDS ORDERED: SODIUM CHLORIDE 0.9% 1000ML 1,000 ML IV ONE (15:26)
[2020-11-29] MEDS ORDERED: OPTIRAY 320 125ml IV ONE (15:31)
--- NOTE | 2020-11-29 15:53 | CT Scan Report ---
CT ANGIOGRAM OF THE CHEST CLINICAL HISTORY: Dyspnea. Hypoxia. COMPARISON STUDY: Chest x-ray dated 11/29/2020. TECHNIQUE: Following the IV administration of 119 cc of Optiray 320, CT angiogram of the chest was pe rformed from the upper abdomen to the thoracic inlet utilizing the pulmonary embolus protocol. Images are reviewed in the axial, sagittal, and coronal planes. 3-D MIPS images are created and assessed. I V contrast was administered without complication. A dose lowering technique was utilized adhering to the principles of ALARA. The examination is significantly degraded by motion artifact. CT DOSE: 496.96 mGycm FINDINGS: Thyroid: Imaged portions of the thyroid gland are normal in size and attenuation. Thoracic aorta: There there is mild atherosclerotic calcification of the thoracic aorta, which is nor mal in caliber and demonstrates standard 3-vessel arch anatomy. No dissection is seen. Pulmonary vasculature: The main pulmonary arteries appear dilated suggesting pulmonary artery hyperte nsion. There are no filling defects identified in main, lobar, or proximal segmental pulmonary branch es to suggest pulmonary embolus. Evaluation of the peripheral branches is degraded by motion artifact . Heart: The heart is mildly enlarged and without pericardial effusion. The coronary arteries are dense ly calcified. Lungs and pleural spaces: Evaluation of the lung parenchyma is significantly degraded by motion artif act. Extensive airspace consolidation is seen throughout both lungs. There are trace pleural effusion s. Mediastinum: There are numerous mildly enlarged mediastinal lymph nodes which measure up to 14 mm in short axis. [place]: There are numerous mildly enlarged hilar nodes which measure up to 11 mm in short axis. Axillae: There is no axillary lymphadenopathy. Upper abdomen: Partially visualized upper abdominal viscera is within normal limits. Skeletal structures: The skeletal structures are osteopenic. No lytic or blastic bony lesions are see n. There is a large gas-containing Schmorl's node in the inferior endplate of T12. There is an age in determinant compression deformity of T12. A T8 compression deformity is likely chronic. Lumbar spinal fusion hardware is noted on the dice table operator tomogram. IMPRESSION: 1. Significantly motion compromised examination. 2. There is no evidence of pulmonary embolus in the main, lobar, or proximal segmental pulmonary miguel beulah. Evaluation of the peripheral branches is significantly degraded by motion artifact. 3. Extensive/diffuse airspace consolidation is seen throughout both lungs. The appearance is typical for an infectious pneumonitis. Clinical correlation will be required and radiographic follow-up to re solution is recommended. 4. Mild cardiac enlargement and trace pleural effusions. 5. There is an age indeterminant compression deformity of T12. Correlate for point tenderness. 6. Mildly enlarged mediastinal and hilar lymph nodes are likely reactive. 7. Additional findings as above. ACT 112: Negative or not required by law. Electronically signed by: Juanito German M.D. 11/29/2020 3:52 PM
[2020-11-29] MEDS ORDERED: cefTRIAXone SODIUM 1,000 MG in DEXTROSE 5% 50 ML IV ONE (16:45)
--- NOTE | 2020-11-29 16:59 | History & Physical Report ---
Date of Service November 29, 2020 Assessment & Plan (1) Community acquired bacterial pneumonia: Continue ceftriaxone and azithromycin. Failed levofloxacin outpatient treatment. SARS-COV2 PCR negative x2. Influenza negative. RSV negative. MRSA nasal swab negative. Incentive spirometry, flutter valve. Follow up blood and sputum culture. Follow up urine legionella. Immunosuppressed with methotrexate, skilled nursing prednisone use and Rinvoq but appropriately has stopped both the methotrexate and Rinvoq. (2) Hypoxia: Without respiratory failure. Secondary to multifocal PNA as above. Given elevated troponin will aim O2 sats > 94%. (3) Elevated troponin: Suspect represents demand ischemia in the setting of multifocal pneumonia and hypoxia. We will repeat with a.m. labs. Low suspicion of ACS given lack of history prior to current diagnosis and no sudden worsening of her chest pain. (4) Rheumatoid arthritis: Continue to hold Rinvoq and methotrexate. Continue prednisone 5mg PO daily. 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 (6) Normocytic anemia: Suspect secondary to Rinvoq. No symptoms/sign bleeding from history or exam. Trend Hgb. (7) Leukopenia: Suspect secondary to bacterial PNA as above in addition to Rinvoq. Appropriately already discontinued Rinvoq. (8) GERD without esophagitis: Switch his omeprazole for pantoprazole per hospital formulary (9) DVT prophylaxis: Lovenox 40mg SQ daily Admission and Anticipated Discharge Date Admission Date: November 29, 2020 History of Present Illness Chief Complaint: Generalized weakness and shortness of breath Primary Care Provider: Floyd Lo MD Anna Marie Dumont is a 75-year-old female with rheumatoid arthritis on Rinvoq who presents to the ER with generalized weakness and lack of appetite for last 1.5 weeks. She was treated by her PCP for pneumonia 8 days ago with a 7-day course of Levaquin. She reports this usually helps with her bronchitis that occurs once every couple of years but this time she felt no improvement. Symptoms have got progressively worse during this time with increasing shortness of breath but mainly generalized bilateral weakness, poor appetite, nausea and fatigue. She takes Rinvoq and methotrexate for her rheumatoid arthritis but appropriately stopped the Rinvoq at the onset of her symptoms (she reports being on this for years). She took her methotrexate 7 days ago but missed her dose today. Due to her poor appetite and decreased oral intake she thinks she missed all her medications yesterday (although possibly took a prednisone). Associated productive cough with green/yellow sputum increasing during this time. She was tested for COVID-19 and influenza 4 days ago which was negative. She denies any fever, chills, loss of taste or smell (although does note change in smell), vomiting, headache, sore throat, diarrhea or abdominal pain. She denies any known COVID-19 contacts. In the ER chest x-ray was concerning for multifocal pneumonia. SARS-CoV-2, influenza, RSV PCR negative. CTA showed no evidence of pulmonary embolus although peripheral branches significantly degraded. Troponin was mildly elevated at 0.4. She has noted associated chest heaviness but only intermittently, none currently and mainly on coughing. Prior to her current di agnosis she reports good exercise tolerance without chest pain. She has no history of coronary artery disease but is at increased risk with her rheumatoid arthritis. She was referred to medicine for admission and ongoing management of multifocal pneumonia, hypoxia and elevated troponin. Allergies Allergy/AdvReac Type Severity Reaction Status Date / Time adhesive Allergy Unknown BLISTERS Verified 11/29/20 16:09 Gold Salts Allergy Unknown Unknown Uncoded 11/29/20 16:09 MYOCRISENE Allergy Unknown SPACES HER Uncoded 11/29/20 16:09 OUT Home Medications Medication Instructions Recorded Confirmed Type calcium carbonate 600 mg(1,500 1 tab PO BID 06/15/19 11/29/20 History mg)-vitamin D3 800 unit chewable tablet cholecalciferol (vitamin D3) 25 2,000 units PO DAILY #60 cap 06/15/19 11/29/20 History mcg (1,000 unit) capsule oxaprozin 600 mg tablet 600 mg PO BID #180 tab 06/15/19 11/29/20 History prednisone 5 mg tablet 5 mg PO QAM #90 tab 06/15/19 11/29/20 History hydrocortisone 2.5 % topical cream 1 appln NH DAILY PRN #30 gm 02/17/20 11/29/20 Rx with perineal applicator folic acid 1 mg tablet 1 mg PO 6XWK #90 tab 07/27/20 11/29/20 Rx methotrexate sodium 2.5 mg tablet 15 mg PO WEEKLY #72 tab 07/27/20 11/29/20 Rx Wheeled Walker #1 ea 08/22/20 11/29/20 Rx esomeprazole magnesium 40 mg 40 mg PO QAM #90 cap 08/22/20 11/29/20 Rx capsule,delayed release metaxalone 800 mg tablet 800 mg PO TID PRN tab 09/20/20 11/29/20 History timolol maleate 0.5 % eye drops 1 drp OP .24hrs ml 09/20/20 11/29/20 History codeine 10 mg-guaifenesin 100 mg/5 5 ml PO Q6H PRN #118 ml 11/21/20 11/29/20 Rx mL oral liquid benzonatate 200 mg capsule 200 mg PO TID PRN #30 cap 11/28/20 11/29/20 Rx diclofenac sodium 4 g TOPICAL QID PRN 11/29/20 11/29/20 History fluticasone propionate 2 sprays INTRANASAL DAILY PRN 11/29/20 11/29/20 History upadacitinib [Rinvoq] 15 mg PO DAILY 11/29/20 11/29/20 History 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, lumbar region Surgical History History of back surgery Hx of cataract surgery Family History Sister Breast cancer Uterine cancer Family/Other Breast cancer Mother Breast cancer Daughter Breast cancer Brother Glioblastoma multiforme of brain Father Heart disease Myocardial infarction Denies family history of Ovarian cancer Prostate cancer Colorectal cancer Social History Smoking Status: Never smoker Second Hand Exposure: No; Hx Alcohol Use: No Hx Substance Use: No Preferred Language: Brazilian Communication Ability: Effective 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 Beliefs That Will Affect Care: None marital status: Current Living Situation: Spouse current occupational status: employed current occupation: [employer] Other Information That Helps Us Care for You: No Feels Safe at Home: Yes Safety Concerns: Feels Safe At This Time Seatbelt Use: always Assistive Devices: Hearing Aid - Bilateral and Walker Review of Systems Review of Systems: All systems reviewed & are unremarkable except as noted in HPI & below Physical Exam Constitutional: well developed and well nourished; no acute distress Eyes: + anicteric sclerae; normal pupil size Respiratory: + cough (Productive) and able to speak in complete sentences; no respiratory distress, no labored breathing, no retractions, does not use accessory muscles and not tachypneic Auscultation: + crackles (Posteriorly throughout); no diminished lung sounds, no rales and no wheezes Cardiovascular: Rate/Rhythm: regular rate and regular rhythm Heart Sounds: no murmur Vessels: no JVD Extremities: normal capillary refill; no calf tenderness Gastrointestinal (Abdomen): normal bowel sounds, soft, nontender, no hepato splenomegaly Musculoskeletal: no cyanosis or clubbing, extremities motor strength 5/5 Skin: no rashes, warm and dry Neurologic: moves all extremities and awake; no focal motor deficits and not confused Psychiatric: A+Ox3, euthymic affect Genitourinary: no CVA tenderness Results & Data Results & Data ([facility]) Vital Signs (Past 12 Hours) Vital Signs Temp Pulse Pulse Resp BP BP Pulse Ox 11/29/20 16:00 87 20 119/58 L 99 11/29/20 15:46 37.4 C 11/29/20 15:00 92 H 22 117/63 98 11/29/20 14:36 101 H 22 144/69 H 97 11/29/20 13:58 98 11/29/20 13:48 38.2 C H 115 H 26 H 136/70 80 L Diagnostic Findings XR chest 1V portable IMPRESSION: Moderate bilateral airspace opacities suggest multifocal pneumonia. CT ANGIOGRAM OF THE CHEST IMPRESSION: 1. Significantly motion compromised examination. 2. There is no evidence of pulmonary embolus in the main, lobar, or proximal segmental pulmonary arteries. Evaluation of the peripheral branches is significantly degraded by motion artifact. 3. Extensive/diffuse airspace consolidation is seen throughout both lungs. The appearance is typical for an infectious pneumonitis. Clinical correlation will be required and radiographic follow-up to resolution is recommended. 4. Mild cardiac enlargement and trace pleural effusions. 5. There is an age indeterminant compression deformity of T12. Correlate for point tenderness. 6. Mildly enlarged mediastinal and hilar lymph nodes are likely reactive. 7. Additional findings as above. Medications Administered ER medications given: Ceftriaxone 1 g IV NSS 1L bolus + 500 mL bolus Acetaminophen 650 mg p.o. Azithromycin 500 mg p.o. ECG Indication: SOB/dyspnea Rate (beats per minute): 87 Rhythm: normal sinus Findings: + other (T wave flattening in inferior leads) Comparison ECG Date: from (May 31, 2008) Change: the following changes noted (T wave flattening in inferior leads) Code Status & VTE Plan Code Status Full VTE Prophylaxis Plan VTE Prophylaxis will be ordered: Yes PG Care Time/CCT Total # of Minutes Spent Total Time Spent with Patient: Total time spent is greater than 50% in coordination of care (as documented) at patient's floor/unit and/or counseling patient: Coding Level of Care Code 21138 Initial Inpt Care Lvl 3 Diagnoses Community acquired bacterial pneumonia J15.9 Hypoxia R09.02 Elevated troponin R77.8 Rheumatoid arthritis M05.9 Rheumatoid arthritis location: unspecified site Rheumatoid factor presence: with rheumatoid factor 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
[2020-11-29] MEDS: cefTRIAXone SODIUM 1000MG/50ML D5W IV ONE ×2 (17:13)
[2020-11-29] MEDS ORDERED: METAXALONE 800 MG TABLET PO PRN (18:06)
[2020-11-29] MEDS ORDERED: HYDROCORTISONE HC 2.5% CRM 30GM TUBE EXT PRN (18:06)
[2020-11-29] MEDS ORDERED: BENZONATATE 100 MG CAPSULE PO PRN (18:06)
[2020-11-29] MEDS ORDERED: ALUMINUM/MAGNESIUM SUSP 30 ML UDC PO PRN (18:06)
[2020-11-29] MEDS ORDERED: FLUTICASONE PROPIONATE NA SPR 16 GM BTL NAE PRN (18:06)
[2020-11-29] MEDS ORDERED: ONDANSETRON INJ 2 MG/ML 2 ML VIAL IV PRN (18:06)
[2020-11-29] MEDS: CALCIUM 600MG + VIT D 400 IU TAB PO SCH (20:12)
[2020-11-29] MEDS: ENOXAPARIN INJ 40 MG/0.4 ML SYR SQ SCH (20:55)
[2020-11-29] MEDS: POLYETHYLENE (MIRALAX) 17 GM PACK PO SCH (20:55)
[2020-11-29] MEDS: ACETAMINOPHEN 325 MG TAB PO PRN (23:28)
[2020-11-29] MEDS: guaiFENesin/CODEINE 100MG/10MG 5ML UDC PO PRN (23:28)
[2020-11-29] MEDS ORDERED: COUGH DROP (SUGAR FREE) LOZ 24 LOZ/1 BOX BUCCAL PRN (23:42)
--- NOTE | 2020-11-30 05:59 | Electrocardiogram Report ---
Test Reason : Blood Pressure : / mmHG Vent. Rate : 112 BPM Atrial Rate : 112 BPM P-R Int : 170 ms QRS Dur : 078 ms QT Int : 320 ms P-R-T Axes : 027 034 017 degrees QTc Int : 436 ms Poor data quality, interpretation may be adversely affected Sinus tachycardia Possible Left atrial enlargement Possible Inferior infarct , age undetermined Cannot rule out Anterior infarct , age undetermined Abnormal ECG When compared with ECG of 31-MAY-2008 14:01, Vent. rate has increased BY 41 BPM Inferior infarct is now Present T wave inversion now evident in Inferior leads Confirmed by Siva Puga ([id number]) on 11/30/2020 5:59:02 AM Referred By: REFERRED SELF Confirmed By:Siva Puga
--- NOTE | 2020-11-30 06:06 | Electrocardiogram Report ---
Test Reason : Blood Pressure : / mmHG Vent. Rate : 087 BPM Atrial Rate : 087 BPM P-R Int : 172 ms QRS Dur : 086 ms QT Int : 382 ms P-R-T Axes : -01 009 019 degrees QTc Int : 459 ms Poor data quality, interpretation may be adversely affected Normal sinus rhythm Possible Inferior infarct (cited on or before 29-NOV-2020) Cannot rule out Anterior infarct (cited on or before 29-NOV-2020) Abnormal ECG When compared with ECG of 29-NOV-2020 13:41, Less artifact is now present Confirmed by Siva Puga ([id number]) on 11/30/2020 6:05:49 AM Referred By: REFERRED SELF Confirmed By:Siva Puga
[2020-11-30 06:55] LABS: Basophils # (auto) 0.01 K/uL (0-0.2); Basophils % (auto) 0.4 %; Eosinophils # (auto) 0.06 K/uL (0-0.5); Eosinophils % (auto) 2.6 %; Hematocrit (blood only) 26.3 % (37-47); Hemoglobin 7.8 g/dL (12.0-16.0); Immature Granulocytes # (auto) 0.02 K/uL (0.00-0.02); Immature Granulocytes % (auto) 0.9 %; Lymphocytes # (auto) 0.79 K/uL (1.2-3.4); Lymphocytes % (auto) 34.3 %; Mean Corpuscular Hemoglobin 26.4 pg (25-34); Mean Corpuscular Hgb Conc 29.7 g/dL (32-36); Mean Corpuscular Volume 89.2 fL (80-100); Mean Platelet Volume 8.7 fL (7.4-10.4); Monocytes # (auto) 0.14 K/uL (0.11-0.59); Monocytes % (auto) 6.1 %; Neutrophils # (auto) 1.28 K/uL (1.4-6.5); Neutrophils % (auto) 55.7 %; Platelet Count 111 K/uL (130-400); RDW Coefficient of Variation 23.1 % (11.5-14.5); RDW Standard Deviation 75.5 fL (36.4-46.3); Red Blood Count 2.95 M/uL (4.2-5.4)
[2020-11-30 07:03] LABS: INR 1.1 (0.9-1.1); Partial Thromboplastin Ratio 1.2; Partial Thromboplastin Time 33.9 Seconds (21.0-31.0); Prothrombin Time 11.6 Seconds (9.0-12.0)
[2020-11-30 07:14] LABS: BUN Creatinine Ratio 29.8 (10-20); Calcium 9.5 mg/dl (8.5-10.1); Creatinine Clr Calc Pharmacy 52.1 ml/min; Est GFR (African American) 73.5; Est GFR (Non-African American) 63.4; Potassium 3.8 mmol/L (3.5-5.1)
[2020-11-30 07:24] LABS: Troponin I 0.426 ng/ml (0-0.045)
[2020-11-30 07:27] LABS: RBC Morphology Unremarkable
[2020-11-30] MEDS: guaiFENesin/CODEINE 100MG/10MG 5ML UDC PO PRN ×3 (08:01→22:06)
[2020-11-30] MEDS: CALCIUM 600MG + VIT D 400 IU TAB PO SCH ×2 (08:01→20:06)
[2020-11-30] MEDS: POLYETHYLENE (MIRALAX) 17 GM PACK PO SCH ×2 (08:02→20:06)
[2020-11-30] MEDS: PANTOprazole 40 MG TAB PO SCH (08:02)
[2020-11-30] MEDS: FOLIC ACID 1 MG TAB PO SCH (08:02)
[2020-11-30] MEDS: TIMOLOL MALEATE 0.5% OP SOLN 5 ML BTL OP SCH (08:02)
[2020-11-30] MEDS: AZITHROMYCIN 250 MG TAB PO SCH (08:03)
[2020-11-30] MEDS: ACETAMINOPHEN 325 MG TAB PO PRN (08:03)
[2020-11-30] MEDS: CHOLECALCIFEROL 1,000 UNITS 25 MCG TAB PO SCH (08:03)
[2020-11-30] MEDS ORDERED: predniSONE 5 MG TAB PO SCH (09:00)
[2020-11-30] MEDS: BENZONATATE 100 MG CAPSULE PO SCH ×3 (09:20→20:05)
--- NOTE | 2020-11-30 09:56 | Hospitalist Progress Note ---
Date of Service November 30, 2020 Assessment & Plan (1) Elevated troponin: 75 yo F with hx Rheumatoid arthritis on daily prednisone therapy and immunologics, lumbar disc degeneration, hypercholesterolemia admitted for severe pneumonia. Severe Community Acquired Pneumonia failed outpatient treatment of CAP with levaquin CXR showing multifocal pneumonia CTA negative for PE, multifocal pna vs. aspiration pneumonitis WBC low, lymphopenic Febrile to 38.2, tachypenic, tachycardic, hypoxic started on ceftriaxone in ER. Expanded to cefepime given hx rheumatoid disease and higher likelihood for pseudomonal infection azithromycin for atypical coverage blood cultures pending O2 support as needed tylenol with codeine and tessalon perls for cough Rheumatoid Arthritis - cont 5 prednisone daily - defer stress dose steroids at this time - continue home metaxalone DVT ppx: lovenox FEN/GI: regular diet, NA Code status: full code Dispo: med-tele, Home vs. rehab depending on PT and strength loss during stay (2) Leukopenia: (3) Normocytic anemia: (4) Multifocal pneumonia: (5) GERD without esophagitis: (6) longterm current use of systemic steroids: (7) Rheumatoid arthritis: Admission and Anticipated Discharge Date Admission Date: November 29, 2020 Supervising Physician Co-Signing Physician Notes I personally examined the patient and verified all casas points of history and exam, discussed case, and agree with decision making with Dr Singleton feeling about the same as when she came in. coughng a lot vitals noted nad but is fatigued appearing. coughing frequently. heent nc at mmm lungs scattered rales/mucous sounding crackles throughout no accessory muscles good effort severe CAP in immunocompromised patient causing hypoxic respiratory failure, sepsis all present on admission - due to severe cap and immunocompromised state - will escalate ceftriaxone to cefdinir for pseudomonal coverage. continue zithromax for atypicals. probably failed as outpt due to quinolone resistant bacteria. continue supportive care. demand ischemia - troponin fortunately only mildly elevated, and with severity of sepsis/hypoxia, could easily fit just from metabolic stress combined with duration of illness. echo for completeness, w/u further for occult CAD if wall motion abnormalities noted. otherwise as above Subjective Ongoing difficulty with breathing and nonproductive cough this morning. pain with deep inspiration. no chest pain, mild chest tightness. no n/v/d/c/dysuria. feels generally weak and fatigued. Review of Systems Review of Systems: All systems reviewed & are unremarkable except as noted in Subjective Physical Exam Physical Exam: Constitutional: obese, moderate distress of breathing, visibly ill Eyes: EOMI, pupils equal and reactive bilaterally, no scleral icterus Cardiac: tachycardic, no murmurs, regular rhythm, Pulm:modest air flow throughout both lungs, coarse breath sounds throughout, no focal crackles/wheezes, breathless while speaking and using oxymask at 4.5L Abd: soft, nontender, nondistended, normal bowel sounds, no rebound or guarding Extremities: 2+ peripheral pulses, no edema Results & Data Results & Data ([facility]) Vital Signs (Past 12 Hours) Vital Signs Temp Pulse Pulse Resp BP Pulse Ox 11/30/20 09:21 37.5 C 11/30/20 08:11 118 H 11/30/20 07:19 38.0 C H 127 H 20 131/59 L 96 11/29/20 23:03 38 C H 116 H 23 131/84 90 Laboratory Results WBC 2.30 K/uL (4.8-10.8) L 11/30/20 06:36 RBC 2.95 M/uL (4.2-5.4) L 11/30/20 06:36 Hgb 7.8 g/dL (12.0-16.0) L 11/30/20 06:36 Hct 26.3 % (37-47) L 11/30/20 06:36 MCV 89.2 fL (80-100) 11/30/20 06:36 MCH 26.4 pg (25-34) 11/30/20 06:36 MCHC 29.7 g/dL (32-36) L 11/30/20 06:36 RDW Std Deviation 75.5 fL (36.4-46.3) H 11/30/20 06:36 RDW Coeff of Tenisha 23.1 % (11.5-14.5) H 11/30/20 06:36 Plt Count 111 K/uL (130-400) L 11/30/20 06:36 MPV 8.7 fL (7.4-10.4) 11/30/20 06:36 Immature Gran % (Auto) 0.9 % 11/30/20 06:36 Neut % (Auto) 55.7 % 11/30/20 06:36 Lymph % (Auto) 34.3 % 11/30/20 06:36 [place] % (Auto) 6.1 % 11/30/20 06:36 Eos % (Auto) 2.6 % 11/30/20 06:36 Baso % (Auto) 0.4 % 11/30/20 06:36 Neut # (Auto) 1.28 K/uL (1.4-6.5) L 11/30/20 06:36 Lymph # (Auto) 0.79 K/uL (1.2-3.4) L 11/30/20 06:36 [place] # (Auto) 0.14 K/uL (0.11-0.59) 11/30/20 06:36 Eos # (Auto) 0.06 K/uL (0-0.5) 11/30/20 06:36 Baso # (Auto) 0.01 K/uL (0-0.2) 11/30/20 06:36 Immature Gran # (Auto) 0.02 K/uL (0.00-0.02) 11/30/20 06:36 Giant Platelets 1+ 11/29/20 14:16 RBC Morphology Unremarkable 11/30/20 06:36 Anisocytosis Present 11/29/20 14:16 PT 11.6 Seconds (9.0-12.0) 11/30/20 06:36 INR 1.1 (0.9-1.1) 11/30/20 06:36 APTT 33.9 Seconds (21.0-31.0) H 11/30/20 06:36 PTT Ratio 1.2 11/30/20 06:36 VBG pH 7.43 (7.36-7.41) H 11/29/20 14:22 VBG pCO2 39 mmHg (38-50) 11/29/20 14:22 VBG pO2 41 mmHg 11/29/20 14:22 VBG HCO3 26 mmol/L 11/29/20 14:22 VBG O2 Saturation 74.3 % 11/29/20 14:22 VBG Base Excess 1.3 mEq/L 11/29/20 14:22 Barometric Pressure 736.3 mm/Hg 11/29/20 14:22 Sodium 138 mmol/L (136-145) 11/30/20 06:36 Potassium 3.8 mmol/L (3.5-5.1) 11/30/20 06:36 Chloride 106 mmol/L (98-107) 11/30/20 06:36 Carbon Dioxide 28 mmol/L (21-32) 11/30/20 06:36 Anion Gap 5.0 (3-11) 11/30/20 06:36 BUN 26 mg/dl (7-18) H 11/30/20 06:36 Creatinine 0.89 mg/dl (0.6-1.2) 11/30/20 06:36 Est Cr Clr Drug Dosing 52.1 ml/min 11/30/20 06:36 Est GFR ( Amer) 73.5 11/30/20 06:36 Est GFR (Non-Af Amer) 63.4 11/30/20 06:36 BUN/Creatinine Ratio 29.8 (10-20) H 11/30/20 06:36 Glucose 89 mg/dl (70-99) 11/30/20 06:36 Lactate 1.5 mmol/L (0.4-2.0) 11/29/20 14:22 Calcium 9.5 mg/dl (8.5-10.1) 11/30/20 06:36 Magnesium 1.9 mg/dl (1.8-2.4) 11/29/20 14:16 Total Bilirubin 0.5 mg/dl (0.2-1) 11/29/20 14:16 AST 31 U/L (15-37) 11/29/20 14:16 ALT 21 U/L (12-78) 11/29/20 14:16 Alkaline Phosphatase 53 U/L (45-117) 11/29/20 14:16 Troponin I 0.259 ng/ml (0-0.045) H* 11/30/20 13:34 NT-Pro-B Natriuret Pep 2542 pg/ml (0-900) H 11/29/20 14:16 Total Protein 5.8 gm/dl (6.4-8.2) L 11/29/20 14:16 Albumin 2.3 gm/dl (3.4-5.0) L 11/29/20 14:16 Globulin 3.5 gm/dl (2.5-4.0) 11/29/20 14:16 Albumin/Globulin Ratio 0.7 (0.9-2) L 11/29/20 14:16 Procalcitonin 0.42 ng/ml (0-0.5) 11/29/20 14:16 Urine Color Dark Yellow 11/29/20 14:30 Urine Appearance Cloudy (Clear) A 11/29/20 14:30 Urine pH 5.0 (4.5-7.5) 11/29/20 14:30 Ur Specific [place] 1.024 (1.000-1.030) 11/29/20 14:30 Urine Protein 1+ (Negative) H 11/29/20 14:30 Urine Glucose (UA) Negative (Negative) 11/29/20 14:30 Urine Ketones 1+ (Negative) H 11/29/20 14:30 Urine Blood Negative (Negative) 11/29/20 14:30 Urine Nitrite Positive (Negative) A 11/29/20 14:30 Urine Bilirubin 2+ (Negative) H 11/29/20 14:30 Urine Urobilinogen Negative (Negative) 11/29/20 14:30 Ur Leukocyte Esterase Trace (Negative) H 11/29/20 14:30 Urine WBC (Auto) 5-10 /hpf (0-5) H 11/29/20 14:30 Urine RBC (Auto) 0-4 /hpf (0-4) 11/29/20 14:30 U Hyaline Cast (Auto) 5-10 /lpf (0-5) H 11/29/20 14:30 U Epithel Cells (Auto) >30 /lpf (0-5) H 11/29/20 14:30 Urine Bacteria (Auto) Negative (Negative) 11/29/20 14:30 Ur Renal Epithelial Cell Not Reportable 11/29/20 14:30 Granular Casts 1-5 /lpf (0) H 11/29/20 14:30 Nasal Screen MRSA (PCR) Negative (Negative) 11/29/20 17:17 COVID-19 Eval Order CovFluRsv at [facility] 11/29/20 14:25 SARS-CoV-2 (PCR) NEGATIVE (Negative) 11/29/20 14:25 Influenza Type A (PCR) Negative (Neg) 11/29/20 14:25 Influenza Type B (PCR) Negative (Neg) 11/29/20 14:25 RSV (RT-PCR) Negative (Neg) 11/29/20 14:25 Resident Activity Tracking Resident Involvement: Resident Care Provided Care Provided: Adult Hospital Medicine (1) Rheumatoid arthritis Rheumatoid arthritis location: unspecified site Rheumatoid factor presence: with rheumatoid factor Qualified Code(s): M05.9 - Rheumatoid arthritis with rheumatoid factor, unspecified
[2020-11-30] MEDS ORDERED: cefTRIAXone SODIUM 2,000 MG in DEXTROSE 5% 50 ML IV SCH ×2 (15:00)
--- NOTE | 2020-11-30 17:38 | Billing Data ---
Date of Service November 30, 2020 Coding Level of Care Code 34894 Subseq Hosp Care Lvl 3
[2020-11-30] MEDS: ALBUT/IPRATROP 3MG/0.5MG NEB 3 ML VIAL NEB SCH (19:24)
[2020-11-30] MEDS: ENOXAPARIN INJ 40 MG/0.4 ML SYR SQ SCH (20:06)
[2020-11-30] MEDS ORDERED: CEFEPIME 2,000 MG in SYRINGE 0 ML IV SCH (21:00)
[2020-11-30] MEDS ORDERED: PIPERACILL/TAZOBAC CONSULT ACTIVE PRN (22:56)
[2020-11-30] MEDS ORDERED: VANCOMYCIN CONSULT ACTIVE PRN (22:56)
[2020-12-01] MEDS ORDERED: VANCOMYCIN HCL 1,500 MG in SODIUM CHLORIDE 0.9% 500 ML IV ONE
[2020-12-01] MEDS ORDERED: PIPERACILLIN/TAZOBACTAM 3.375 GM in DEXTROSE 5% 100 ML IV ONE
--- NOTE | 2020-12-01 00:34 | Communication Note ---
Date of Service: December 01, 2020 Night team asked to evaluate patient regarding worsening breathing. Per nursing, for most of the day, she was on 6L via oxymask and her oxygen requirement increased to 15L via oxymask. On evaluation she was febrile to 37.9 (she had been afebrile during the day), and her HR was in the 120s. She was weakly coughing, unable to bring up any sputum. Her lungs were tight with little air movement. A STAT CXR was obtained, which showed progressive bilateral interstitial opacities compared to film on 11/29/20. I made the following antibiotic changes: added vancomycin and Zosyn; discontinued Cefepime. Kept Azithromycin. Although MRSA nares was negative on 11/29/20, I escalated to vancomycin given clinical worsening. Given concern for possible aspiration pneumonitis, I changed cefepime to Zosyn for improved anaerobic coverage. Continue azithromycin for atypical coverage. I also added Mucinex and Xopenex nebs --> air movement improved after neb reymundo atment on repeat exam, patient transitioned back to 6L via NC, satting 91%.
[2020-12-01] MEDS ORDERED: LEVALBUTEROL HCL 1.25 MG/3 ML NEB NEB PRN (00:40)
[2020-12-01] MEDS ORDERED: LEVALBUTEROL HCL 1.25 MG/3 ML NEB NEB SCH (01:00)
[2020-12-01] MEDS: PIPERACILLIN/TAZOBACTAM 3.375 GM in DEXTROSE 5% 100 ML IV SCH ×2 (04:45→12:11)
--- NOTE | 2020-12-01 06:06 | Electrocardiogram Report ---
Test Reason : Blood Pressure : / mmHG Vent. Rate : 116 BPM Atrial Rate : 116 BPM P-R Int : 172 ms QRS Dur : 080 ms QT Int : 316 ms P-R-T Axes : 051 074 052 degrees QTc Int : 439 ms Sinus tachycardia Otherwise normal ECG When compared with ECG of 29-NOV-2020 15:49, Borderline criteria for Inferior infarct are no longer Present Confirmed by Siva Puga ([id number]) on 12/01/2020 6:06:07 AM Referred By: REFERRED SELF Confirmed By:Siva Puga
[2020-12-01 06:08] LABS: Eosinophils # (auto) 0.04 K/uL (0-0.5); Eosinophils % (auto) 1.4 %; Hematocrit (blood only) 26.7 % (37-47); Hemoglobin 8.1 g/dL (12.0-16.0); Immature Granulocytes # (auto) 0.01 K/uL (0.00-0.02); Immature Granulocytes % (auto) 0.4 %; Lymphocytes # (auto) 1.06 K/uL (1.2-3.4); Lymphocytes % (auto) 37.6 %; Mean Corpuscular Hemoglobin 27.1 pg (25-34); Mean Corpuscular Hgb Conc 30.3 g/dL (32-36); Mean Corpuscular Volume 89.3 fL (80-100); Mean Platelet Volume 10.1 fL (7.4-10.4); Monocytes # (auto) 0.24 K/uL (0.11-0.59); Monocytes % (auto) 8.5 %; Neutrophils # (auto) 1.47 K/uL (1.4-6.5); Neutrophils % (auto) 52.1 %; Platelet Count 152 K/uL (130-400); RDW Coefficient of Variation 23.2 % (11.5-14.5); RDW Standard Deviation 74.7 fL (36.4-46.3); Red Blood Count 2.99 M/uL (4.2-5.4); White Blood Count 2.82 K/uL (4.8-10.8)
[2020-12-01 06:39] LABS: Anisocytosis Present; Dohle Bodies 1+; Giant Platelets 3+; Toxic Vacuolation Occasional
[2020-12-01] MEDS: ALBUT/IPRATROP 3MG/0.5MG NEB 3 ML VIAL NEB SCH ×4 (07:19→19:47)
[2020-12-01] MEDS: methylPREDNISolone 60 MG in SYRINGE 0 ML IV SCH ×2 (07:29→14:18)
[2020-12-01] MEDS: BENZONATATE 100 MG CAPSULE PO SCH ×3 (07:54→20:20)
[2020-12-01] MEDS: guaiFENesin/CODEINE 100MG/10MG 5ML UDC PO PRN (07:54)
[2020-12-01] MEDS: AZITHROMYCIN 250 MG TAB PO SCH (07:55)
--- NOTE | 2020-12-01 07:57 | XRay Report ---
XR chest 1V portable CLINICAL HISTORY: SOB COMPARISON STUDY: 11/29/2020 FINDINGS: The cardiac and mediastinal contours remain stable. There is slight progression in the exte nsive bilateral pulmonary airspace opacities consistent with a multifocal pneumonia.[Trace pleural ef fusions are suspected IMPRESSION: Slight progression in the extensive bilateral pulmonary airspace opacities consistent wit h a multifocal pneumonia ACT 112: Negative or not required by law. Electronically signed by: Alcides Hayden M.D. 12/01/2020 7:56 AM
[2020-12-01] MEDS: CALCIUM 600MG + VIT D 400 IU TAB PO SCH ×2 (08:41→20:20)
[2020-12-01] MEDS: POLYETHYLENE (MIRALAX) 17 GM PACK PO SCH ×2 (08:42→20:17)
--- NOTE | 2020-12-01 09:25 | Hospitalist Progress Note ---
Date of Service December 01, 2020 Assessment & Plan (1) Elevated troponin: 75 yo F with hx Rheumatoid arthritis on daily prednisone therapy and immunologics, lumbar disc degeneration, hypercholesterolemia admitted for severe pneumonia. Severe Community Acquired Pneumonia with Sepsis failed outpatient treatment of CAP with levaquin CXR showing worsening multifocal pneumonia, CTA negative for PE, multifocal pna WBC chronically low, lymphopenic. Febrile to 38.2, tachypenic, ABG showing 7.38/41/52/24 ESR elevated to 57, CRP 18, procal 5.11 after initiation of abx and 0.46 on admission abx include cefepime and azithromycin azithromycin for atypical coverage blood cultures negative at 48 hours pulmonary support: QID sched duonebs, PRN xopenex nebs, guafensin, flutter valve, incentive spirometry, tessalon perls for cough agitation O2 support as needed to goal of 92% O2; currently requiring HFNC +/- bipap Rheumatoid Arthritis - stress dose steroids at 40 mg solumedrol daily - hold all home immunosuppresives Elevated Troponins -likely secondary to pulmonary stress of pneumonia - without ekg changes or chest pain - downtrended - TTE results pending DVT ppx: lovenox FEN/GI: regular diet, NA Code status: full code Dispo: med-tele, will require PT/OT at discharge (2) Leukopenia: (3) Normocytic anemia: (4) Multifocal pneumonia: (5) GERD without esophagitis: (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 when revisited later in the day no real sob main complaint is still just ongoing cough vitals noted still fatigued appearing. coughing frequently. heent nc at mmm lungs scattered rales/mucous sounding crackles throughout no accessory muscles good effort severe CAP in immunocompromised patient causing hypoxic respiratory failure, sepsis all present on admission - due to severe cap and immunocompromised state - continue cefepime for gram negatives, doubt aspiration so will hold off on zosyn to mitigate Cdiff risk, MRSA nares neg 98% negative predictive value for MRSA pneumonia and doubt she's representing a treatment failure since SIRS type parameters stable to improved - more that she is immune compromised with extensive/diffuse pneumonia. continue zithromax for atypicals. probably failed as outpt due to quinolone resistant bacteria. continue supportive care. demand ischemia - troponin fortunately only mildly elevated, and with severity of sepsis/hypoxia, could easily fit just from metabolic stress combined with duration of illness. echo concentric LVH, severe pulm HTN pulm HTN - O2/supportive care for now. outpt eval including sleep study, possibly repeat echo to reassess at baseline conditions (although doubt it would change overly drastically), and pulm eval otherwise as above Subjective overnight events: night team called up to evaluate patient and worsening breathing status. Up from 6L to 15Loxymask. CXR showing worsening BL infiltrates. temp up to 37.8C. flipped from cefepime to zosyn and vancomycin. this morning: a&ox3 however having difficulty speaking in full sentences. Review of Systems Review of Systems: patient unable to answer questions between coughing fits. Physical Exam Physical Exam: Constitutional: obese, increased distress of breathing, visibly ill Cardiac: tachycardic, no murmurs, regular rhythm, Pulm:modest air flow throughout both lungs, sounding tight, coarse breath sounds throughout, no focal crackles/wheezes, breathless while speaking and using HFNC at 15L, near continuous coughing fits Results & Data Results & Data ([facility]) Vital Signs (Past 12 Hours) Vital Signs Temp Pulse Pulse Resp BP Pulse Ox 12/01/20 09:00 30 H 94 12/01/20 07:20 36.7 C 115 H 20 147/70 H 91 12/01/20 07:03 104 H 12/01/20 04:03 36.6 C 87 22 119/76 94 12/01/20 00:10 112 H 22 91 11/30/20 21:57 37.9 C H 80 20 144/71 H 93 Laboratory Results WBC 2.82 K/uL (4.8-10.8) L 12/01/20 05:45 RBC 2.99 M/uL (4.2-5.4) L 12/01/20 05:45 Hgb 8.1 g/dL (12.0-16.0) L 12/01/20 05:45 Hct 26.7 % (37-47) L 12/01/20 05:45 MCV 89.3 fL (80-100) 12/01/20 05:45 MCH 27.1 pg (25-34) 12/01/20 05:45 MCHC 30.3 g/dL (32-36) L 12/01/20 05:45 RDW Std Deviation 74.7 fL (36.4-46.3) H 12/01/20 05:45 RDW Coeff of Tenisha 23.2 % (11.5-14.5) H 12/01/20 05:45 Plt Count 152 K/uL (130-400) 12/01/20 05:45 MPV 10.1 fL (7.4-10.4) 12/01/20 05:45 Immature Gran % (Auto) 0.4 % 12/01/20 05:45 Neut % (Auto) 52.1 % 12/01/20 05:45 Lymph % (Auto) 37.6 % 12/01/20 05:45 [place] % (Auto) 8.5 % 12/01/20 05:45 Eos % (Auto) 1.4 % 12/01/20 05:45 Baso % (Auto) 0.0 % 12/01/20 05:45 Neut # (Auto) 1.47 K/uL (1.4-6.5) 12/01/20 05:45 Lymph # (Auto) 1.06 K/uL (1.2-3.4) L 12/01/20 05:45 [place] # (Auto) 0.24 K/uL (0.11-0.59) 12/01/20 05:45 Eos # (Auto) 0.04 K/uL (0-0.5) 12/01/20 05:45 Baso # (Auto) 0.00 K/uL (0-0.2) 12/01/20 05:45 Immature Gran # (Auto) 0.01 K/uL (0.00-0.02) 12/01/20 05:45 Toxic Vacuolation Occasional 12/01/20 05:45 Dohle Bodies 1+ 12/01/20 05:45 Giant Platelets 3+ 12/01/20 05:45 RBC Morphology Unremarkable 11/30/20 06:36 Anisocytosis Present 12/01/20 05:45 ESR 57 mm/hr (0-21) H 12/01/20 05:45 PT 11.6 Seconds (9.0-12.0) 11/30/20 06:36 INR 1.1 (0.9-1.1) 11/30/20 06:36 APTT 33.9 Seconds (21.0-31.0) H 11/30/20 06:36 PTT Ratio 1.2 11/30/20 06:36 Sample Site R Radial 12/01/20 08:51 POC pH 7.39 (7.35-7.45) 12/01/20 08:51 POC pCO2 41 mmHg (35-46) 12/01/20 08:51 POC pO2 47 mmHg (80-95) L 12/01/20 08:51 POC HCO3 25 sade/L (19-24) H 12/01/20 08:51 POC Total CO2 26 mmol/L (24-31) 12/01/20 08:51 POC Base Excess 0.0 sade/L (-9-1.8) 12/01/20 08:51 POC ABG O2 Sat 82.0 % (90-95) L 12/01/20 08:51 Marcelo Test Pass 12/01/20 08:51 VBG pH 7.43 (7.36-7.41) H 11/29/20 14:22 VBG pCO2 39 mmHg (38-50) 11/29/20 14:22 VBG pO2 41 mmHg 11/29/20 14:22 VBG HCO3 26 mmol/L 11/29/20 14:22 VBG O2 Saturation 74.3 % 11/29/20 14:22 VBG Base Excess 1.3 mEq/L 11/29/20 14:22 Barometric Pressure 736.3 mm/Hg 11/29/20 14:22 O2 Delivery Device SimpleMask 12/01/20 08:51 Sodium 138 mmol/L (136-145) 11/30/20 06:36 Potassium 3.8 mmol/L (3.5-5.1) 11/30/20 06:36 Chloride 106 mmol/L (98-107) 11/30/20 06:36 Carbon Dioxide 28 mmol/L (21-32) 11/30/20 06:36 Anion Gap 5.0 (3-11) 11/30/20 06:36 BUN 26 mg/dl (7-18) H 11/30/20 06:36 Creatinine 0.89 mg/dl (0.6-1.2) 11/30/20 06:36 Est Cr Clr Drug Dosing 52.1 ml/min 11/30/20 06:36 Est GFR ( Amer) 73.5 11/30/20 06:36 Est GFR (Non-Af Amer) 63.4 11/30/20 06:36 BUN/Creatinine Ratio 29.8 (10-20) H 11/30/20 06:36 Glucose 89 mg/dl (70-99) 11/30/20 06:36 Lactate 1.5 mmol/L (0.4-2.0) 11/29/20 14:22 Calcium 9.5 mg/dl (8.5-10.1) 11/30/20 06:36 Magnesium 1.9 mg/dl (1.8-2.4) 11/29/20 14:16 Total Bilirubin 0.5 mg/dl (0.2-1) 11/29/20 14:16 AST 31 U/L (15-37) 11/29/20 14:16 ALT 21 U/L (12-78) 11/29/20 14:16 Alkaline Phosphatase 53 U/L (45-117) 11/29/20 14:16 Troponin I 0.259 ng/ml (0-0.045) H* 11/30/20 13:34 C-Reactive Protein 18.60 mg/dl (0-0.29) H 12/01/20 05:45 NT-Pro-B Natriuret Pep 2542 pg/ml (0-900) H 11/29/20 14:16 Total Protein 5.8 gm/dl (6.4-8.2) L 11/29/20 14:16 Albumin 2.3 gm/dl (3.4-5.0) L 11/29/20 14:16 Globulin 3.5 gm/dl (2.5-4.0) 11/29/20 14:16 Albumin/Globulin Ratio 0.7 (0.9-2) L 11/29/20 14:16 Procalcitonin 5.11 ng/ml (0-0.5) H 12/01/20 05:45 Urine Color Dark Yellow 11/29/20 14:30 Urine Appearance Cloudy (Clear) A 11/29/20 14:30 Urine pH 5.0 (4.5-7.5) 11/29/20 14:30 Ur Specific [place] 1.024 (1.000-1.030) 11/29/20 14:30 Urine Protein 1+ (Negative) H 11/29/20 14:30 Urine Glucose (UA) Negative (Negative) 11/29/20 14:30 Urine Ketones 1+ (Negative) H 11/29/20 14:30 Urine Blood Negative (Negative) 11/29/20 14:30 Urine Nitrite Positive (Negative) A 11/29/20 14:30 Urine Bilirubin 2+ (Negative) H 11/29/20 14:30 Urine Urobilinogen Negative (Negative) 11/29/20 14:30 Ur Leukocyte Esterase Trace (Negative) H 11/29/20 14:30 Urine WBC (Auto) 5-10 /hpf (0-5) H 11/29/20 14:30 Urine RBC (Auto) 0-4 /hpf (0-4) 11/29/20 14:30 U Hyaline Cast (Auto) 5-10 /lpf (0-5) H 11/29/20 14:30 U Epithel Cells (Auto) >30 /lpf (0-5) H 11/29/20 14:30 Urine Bacteria (Auto) Negative (Negative) 11/29/20 14:30 Ur Renal Epithelial Cell Not Reportable 11/29/20 14:30 Granular Casts 1-5 /lpf (0) H 11/29/20 14:30 Nasal Screen MRSA (PCR) Negative (Negative) 11/29/20 17:17 COVID-19 Eval Order CovFluRsv at [facility] 11/29/20 14:25 SARS-CoV-2 (PCR) NEGATIVE (Negative) 11/29/20 14:25 Influenza Type A (PCR) Negative (Neg) 11/29/20 14:25 Influenza Type B (PCR) Negative (Neg) 11/29/20 14:25 RSV (RT-PCR) Negative (Neg) 11/29/20 14:25 Resident Activity Tracking Resident Involvement: Resident Care Provided Care Provided: Adult Hospital Medicine (1) Rheumatoid arthritis Rheumatoid arthritis location: unspecified site Rheumatoid factor presence: with rheumatoid factor Qualified Code(s): M05.9 - Rheumatoid arthritis with rheumatoid factor, unspecified
[2020-12-01] MEDS: CHOLECALCIFEROL 1,000 UNITS 25 MCG TAB PO SCH (10:09)
[2020-12-01] MEDS: PANTOprazole 40 MG TAB PO SCH (10:09)
--- NOTE | 2020-12-01 10:09 | Pharmacy Report ---
Pharmacy Abx Dose Short Note - Date of Service December 01, 2020 - Assessment & Plan Assessment * Ms Dumont is a 75 year old F receiving Vancomycin/Zosyn for treatment of pneumonia. * Pt was admitted on 11/29/20 with CAP/hypoxia/elevated trop. She was initially treated with Cefepime/azithromycin, but abx were escalated overnight d/t increased oxygen requirements, fever, tachycardia. CXR showed progressive b/l interstitial opacities. * PMH is significant for immunosuppression 2/2 RA medications (prednisone, methotrexate, upadacitinib). * Pt was treated with a 7-day course of Levaquin prior to admission, which was unsuccessful. * Blood and urine cultures pending. MRSA swab negative (reasonable to continue vancomycin in the setting of clinical worsening) Plan Vancomycin * Vanc 1500mg IV x1 dose, then * Vanc 1gm IV q12h, per AUC dosing nomogram * Patient meets criteria for vancomycin AUC dosing nomogram * AUC/MICHAEL is the preferred PK/PD target for vancomycin * Target AUC/MICHAEL = 400-600 * AUC guided dosing is effective and associated with decreased risk of n ephrotoxicity * Trough level ordered for: 12/02 prior to the 4th dose Zosyn 3.375gm x1, then 3.375gm IV q8h Azithromycin 500mg PO x1, then 250mg PO daily (on day 3) Pharmacy will continue to follow and will adjust dose/frequency as necessary. Thank you.
[2020-12-01] MEDS: FOLIC ACID 1 MG TAB PO SCH (10:10)
[2020-12-01 11:52] LABS: iSTAT Allen Test Pass; iSTAT Arterial Blood Gas HCO3 25 meg/L (19-24); iSTAT Arterial Blood Gas pCO2 41 mmHg (35-46); iSTAT Arterial Blood Gas pH 7.39 (7.35-7.45); iSTAT Arterial Blood Gas pO2 47 mmHg (80-95); iSTAT Carbon Dioxide 26 mmol/L (24-31); iSTAT Site R Radial
[2020-12-01] MEDS ORDERED: VANCOMYCIN HCL 1,000 MG in SODIUM CHLORIDE 0.9% 250 ML IV SCH (12:00)
[2020-12-01] MEDS: TIMOLOL MALEATE 0.5% OP SOLN 5 ML BTL OP SCH (12:12)
[2020-12-01] MEDS: guaiFENesin 600 MG TABCR PO SCH ×2 (12:32→20:20)
[2020-12-01] MEDS ORDERED: FUROSEMIDE 40 MG in SYRINGE 0 ML IV ONE (17:00)
--- NOTE | 2020-12-01 17:45 | XCELERA ---
[id number]
--- NOTE | 2020-12-01 17:59 | Billing Data ---
Date of Service December 01, 2020 Coding Level of Care Code 20066 Subseq Hosp Care Lvl 3
[2020-12-01] MEDS: ENOXAPARIN INJ 40 MG/0.4 ML SYR SQ SCH ×2 (20:21→20:25)
[2020-12-01] MEDS: CEFEPIME 2,000 MG in SYRINGE 0 ML IV SCH (20:21)
[2020-12-02 06:58] LABS: Nucleated RBC # (auto) 0.03 K/uL (0-0); Nucleated RBC % (auto) 0.7 %
[2020-12-02 07:13] LABS: Hematocrit (blood only) 28.2 % (37-47); Hemoglobin 8.5 g/dL (12.0-16.0); Mean Corpuscular Hemoglobin 27.1 pg (25-34); Mean Corpuscular Hgb Conc 30.1 g/dL (32-36); Mean Corpuscular Volume 89.8 fL (80-100); Mean Platelet Volume 10.2 fL (7.4-10.4); Platelet Count 274 K/uL (130-400); RDW Coefficient of Variation 23.4 % (11.5-14.5); RDW Standard Deviation 75.6 fL (36.4-46.3); Red Blood Count 3.14 M/uL (4.2-5.4); White Blood Count 3.95 K/uL (4.8-10.8)
[2020-12-02 07:30] LABS: BUN Creatinine Ratio 28.1 (10-20); Calcium 9.6 mg/dl (8.5-10.1); Creatinine Clr Calc Pharmacy 54.1 ml/min; Est GFR (African American) 77.7; Potassium 3.5 mmol/L (3.5-5.1)
[2020-12-02 07:31] LABS: Anisocytosis Present; Basophils # (auto) 0.03 K/uL (0-0.2); Basophils % (auto) 0.8 %; Dohle Bodies 1+; Immature Granulocytes # (auto) 0.01 K/uL (0.00-0.02); Immature Granulocytes % (auto) 0.3 %; Lymphocytes # (auto) 1.16 K/uL (1.2-3.4); Lymphocytes % (auto) 29.4 %; Monocytes # (auto) 0.76 K/uL (0.11-0.59); Monocytes % (auto) 19.2 %; Neutrophils # (auto) 1.99 K/uL (1.4-6.5); Neutrophils % (auto) 50.3 %
[2020-12-02] MEDS: ALBUT/IPRATROP 3MG/0.5MG NEB 3 ML VIAL NEB SCH ×4 (07:36→19:19)
[2020-12-02] MEDS: CALCIUM 600MG + VIT D 400 IU TAB PO SCH ×4 (08:19→20:41)
[2020-12-02] MEDS: PANTOprazole 40 MG TAB PO SCH (08:20)
[2020-12-02] MEDS: FOLIC ACID 1 MG TAB PO SCH (08:20)
[2020-12-02] MEDS: CEFEPIME 2,000 MG in SYRINGE 0 ML IV SCH ×2 (08:20→20:40)
[2020-12-02] MEDS: BENZONATATE 100 MG CAPSULE PO SCH ×3 (08:20→20:39)
[2020-12-02] MEDS: TIMOLOL MALEATE 0.5% OP SOLN 5 ML BTL OP SCH (08:20)
[2020-12-02] MEDS: guaiFENesin 600 MG TABCR PO SCH ×2 (08:20→20:39)
[2020-12-02] MEDS: methylPREDNISolone 40 MG in SYRINGE 0 ML IV SCH (08:20)
[2020-12-02] MEDS: CHOLECALCIFEROL 1,000 UNITS 25 MCG TAB PO SCH (08:20)
[2020-12-02] MEDS: AZITHROMYCIN 250 MG TAB PO SCH (08:20)
[2020-12-02] MEDS: POLYETHYLENE (MIRALAX) 17 GM PACK PO SCH ×2 (08:23→20:38)
--- NOTE | 2020-12-02 09:19 | Hospitalist Progress Note ---
Date of Service December 02, 2020 Assessment & Plan (1) Elevated troponin: 75 yo F with hx Rheumatoid arthritis on daily prednisone therapy and immunologics, lumbar disc degeneration, hypercholesterolemia admitted for severe pneumonia. Severe Community Acquired Pneumonia with Sepsis - Failed outpatient treatment of CAP with levaquin - CXR showing worsening multifocal pneumonia, CTA negative for PE, multifocal pna - COVID negative 11/29/20 - MRSA nares negative - WBC chronically low, lymphopenic. Afebrile overnight 12/01-12/02 - ABG 7.39/41/47/25 showing no significant acidemia/alkalemia but impaired oxygen exchange while on FiO2 ~.6 - ESR elevated to 57, CRP uptrending from 18 to 20, procal 5.11 after initiation of abx and 0.46 on admission - Continue Cefepime/Azithromycin - Blood cultures negative at 48 hours - Pulmonary Toilet: QID sched duonebs, PRN levalbuterol nebs, guaifenesin, flutter valve, incentive spirometry, tessalon pearls for cough agitation - O2 support as needed to goal of 92% O2; currently requiring HFNC +/- bipap. CPAP nightly, BiPAP as needed limit otherwise risk of mucous plugging Pulmonary Hypertension - TTE shows RSVP 70mmHg. DDx includes CAP, LOLA - Recommend continued tx as above, CPAP nightly, and recommend outpatient polysomnogram and potential repeat TTE once improved Rheumatoid Arthritis - stress dose steroids at 40 mg solumedrol daily - hold all home immunosuppresives Elevated Troponins - Suspect type 2 demand; likely secondary to pulmonary stress of pneumonia - without ekg changes or chest pain - downtrended - TTE shows EF 65%, severe pulm HTN RVSP 70mmHg DVT ppx: lovenox FEN/GI: regular diet, NA Code status: full code Dispo: med-tele, will require PT/OT near discharge Admission and Anticipated Discharge Date Admission Date: November 29, 2020 Supervising Physician Co-Signing Physician Notes I personally examined the patient and verified all casas points of history and exam, discussed case, and agree with decision making with Dr Leija. notes that she feels about the same. vitals noted appears fatigued but acutally less than yesterday or the day before. sitting a little more upright in bed, and eating. no visible dyspnea. breathing unlabored scattered rales but may e a little more clear no accessory muscles breathing easier than last 2 days. good effort. no pallor or icterus severe CAP in immunocompromised patient causing hypoxic respiratory failure, sepsis all present on admission - due to severe cap and immunocompromised state - cautiously stable to maybe slightly improved. extensive pneumonia, immune compromised host - anticipate very slow resolution - but seems mroe that she's mostly ill from the hypoxia (which will probably take quite a while to improve since such extensive infiltrates) than sepsis at this point. obviously follow closely. pitfalls - if she fatigues could still need bipap/intubation - but looks better/easier breathing in this respect; mucous plugging could easily become a worsening issue w hypoxia - ongoing aggressive pulmonary toilet; if she were to look more septic again/spike fevers again/etc - then would need to have MRSA coverage despite neg MRSA nares, and possibly double cover for gram negs. demand ischemia - troponin fortunately only mildly elevated, and with severity of sepsis/hypoxia, could easily fit just from metabolic stress combined with duration of illness. echo concentric LVH, severe pulm HTN pulm HTN - O2/supportive care for now. outpt eval including sleep study, possibly repeat echo to reassess at baseline conditions (although doubt it would change overly drastically), and pulm eval otherwise as above Subjective Anna Marie Turner was seen at the bedside this morning. At time of assessment she is wearing a oxygen mask with high flow nasal cannula, was having difficulty with the equipment while eating, repositioned. She reports that she has felt a couple of chills, but denies shakes or rigors. She continues to be short of breath and feel fatigued. Denies chest pain, abdominal pain, nausea, vomiting, syncope, weakness. She reports overall is just her breathing that bothers her, she feels about the same as when she came in. No other questions or concerns at time of assessment. Review of Systems Review of Systems: All systems reviewed & are unremarkable except as noted in HPI & below Physical Exam Physical Exam: General: A&Ox3. NAD. Cooperative. On nasal cannula high flow with overlying oxygen mask. HEENT: Atraumatic, normocephalic. Visual acuity grossly intact. Extraocular movements intact. Pulm: Globally diminished with diffuse crackles which clear somewhat mid breath. No wheezes appreciated. Symmetrical chest rise. No accessory muscle of breathing use. Cardiac: RRR, -mrg. Radial pulses intact and symmetrical. Abdominal: Nontender, nondistended, soft. BS present. Results & Data Results & Data ([facility]) Vital Signs (Past 12 Hours) Vital Signs Temp Pulse Pulse Pulse Resp BP Pulse Ox 12/02/20 07:41 84 12/02/20 07:37 94 H 22 92 12/02/20 07:14 36.5 C 95 H 18 123/83 100 12/02/20 03:11 98 H 20 95 12/02/20 02:33 36.3 C L 97 H 20 132/84 86 L 12/02/20 02:08 92 H 12/01/20 22:36 36.3 C L 92 H 18 115/75 91 Resident Activity Tracking Resident Involvement: Resident Care Provided Care Provided: Pediatric Care
[2020-12-02] MEDS ORDERED: VANCOMYCIN TROUGH ONE (11:59)
--- NOTE | 2020-12-02 13:37 | Billing Data ---
Date of Service December 02, 2020 Coding Level of Care Code 30651 Subseq Hosp Care Lvl 3
[2020-12-02] MEDS: ENOXAPARIN INJ 40 MG/0.4 ML SYR SQ SCH (20:38)
--- NOTE | 2020-12-03 07:03 | Hospitalist Progress Note ---
Date of Service December 03, 2020 Assessment & Plan (1) Elevated troponin: 75 yo F with hx Rheumatoid arthritis on daily prednisone therapy and immunologics, lumbar disc degeneration, hypercholesterolemia admitted for severe pneumonia. Severe Community Acquired Pneumonia with Sepsis - Failed outpatient treatment of CAP with levofloxacin - CXR showing worsening multifocal pneumonia, CTA negative for PE, multifocal pna - COVID negative 11/29/20 - MRSA nares negative - WBC chronically low,improved to 7.7 today. Afebrile overnight - ABG 7.39/41/47/25 showing no significant acidemia/alkalemia but impaired oxygen exchange while on FiO2 ~.6 - ESR elevated to 57, CRP uptrending from 18 to 20, procal 5.11 after initiation of abx and 0.46 on admission - Continue Cefepime/Azithromycin - Blood cultures negative to date - Pulmonary Toilet: QID sched duonebs, PRN levalbuterol nebs, guaifenesin, flutter valve, incentive spirometry, tessalon pearls for cough agitation - O2 support as needed to goal of 92% O2; currently requiring HFNC +/- bipap. CPAP nightly, BiPAP as needed limit otherwise risk of mucous plugging Pulmonary Hypertension - TTE shows RSVP 70mmHg. DDx includes CAP, LOLA - Recommend continued tx as above, CPAP nightly, and recommend outpatient polysomnogram and potential repeat TTE once improved Rheumatoid Arthritis - stress dose steroids at 40 mg solumedrol daily - hold all home immunosuppresives Elevated Troponins - Suspect type 2 demand; likely secondary to pulmonary stress of pneumonia - without ekg changes or chest pain - downtrended - TTE shows EF 65%, severe pulm HTN RVSP 70mmHg DVT ppx: lovenox FEN/GI: regular diet, NA Code status: full code Dispo: med-tele, will require PT/OT near discharge Admission and Anticipated Discharge Date Admission Date: November 29, 2020 Supervising Physician Co-Signing Physician Notes I personally examined the patient and verified all casas points of history and exam, discussed case, and agree with decision making with Dr Leija. out of bed. feeling about the same mostly. did cough up some discolored sputum today. vitals noted mildly fatigued appering nad. heent nc at mmm. lungs better air entry throughout, small amount of scattered mucous-sounding rales, no rhonchi or wheeze good effort no accessory muscles. still on high flow nasal cannula. no focal neuro deficits severe CAP in immunocompromised patient causing hypoxic respiratory failure, sepsis all present on admission - due to severe cap and immunocompromised state - cautiously stable to maybe slightly improved. extensive pneumonia, immune compromised host - showing very slow resolution as anticipated- but seems more that she's mostly ill from the hypoxia (which will probably take quite a while to improve since such extensive infiltrates) than sepsis at this point. obviously follow closely. the fact that she's starting to cough up purulent sputum hopefully portends initiating clearance of her infiltrate over time. continue pulmonary toilet and curretn abx. possible pitfalls - if she fatigues could still need bipap/intubation - but looks better/easier breathing in this respect; mucous plugging could easily become a worsening issue w hypoxia - ongoing aggressive pulmonary toilet; if she were to look more septic again/spike fevers again/etc - then would need to have MRSA coverage despite neg MRSA nares, and possibly double cover for gram negs. demand ischemia - troponin fortunately only mildly elevated, and with severity of sepsis/hypoxia, could easily fit just from metabolic stress combined with duration of illness. echo concentric LVH, severe pulm HTN pulm HTN - O2/supportive care for now. outpt eval including sleep study, possibly repeat echo to reassess at baseline conditions (although doubt it would change overly drastically), and pulm eval otherwise as above she is already anticipating a need for rehab once she's discharged. holding off on PT/OT consults for now due to her having such a high O2 requirement - doubt she could tolerate the extra exertion at this time. continue enoxaparin dvt proph Subjective Anna Marie was seen at the bedside this morning. She reports she feels about the same today as she did yesterday. She reports she feels better on the high flow, and is normally short of breath with in place. She reports that she cannot tolerate the BiPAP/CPAP Mab overnight and "feels suffocated ". She reports that she does not think she has a history of sleep apnea, but verbalizes understanding regarding her pulmonary pressures which may be the result of her acute illness but may also have an underlying component of obstructive lung disease. She also expresses understanding that BiPAP if needed could help void invasive ventilation, states that she feels she is breathing well enough currently that does not need it and "just cannot stand the feeling "overnight. At time of assessment she reports that she is comfortable, slightly short of breath about the same as yesterday. She is sitting up eating breakfast in bed. No other questions or concerns. Denies fever. Endorses feeling chilly, denies shaking chills overnight. Review of Systems Review of Systems: All systems reviewed & are unremarkable except as noted in HPI & below Physical Exam Physical Exam: General: A&Ox3. NAD. Cooperative. On nasal cannula high flow. HEENT: Atraumatic, normocephalic. Visual acuity grossly intact. Extraocular movements intact. Pulm: Globally diminished. No wheezes appreciated. Symmetrical chest rise. No accessory muscle of breathing use. Cardiac: RRR, -mrg. Radial pulses intact and symmetrical. Abdominal: Nontender, nondistended, soft. BS present. Results & Data Results & Data ([facility]) Vital Signs (Past 12 Hours) Vital Signs Temp Pulse Pulse Pulse Resp BP Pulse Ox 12/03/20 03:07 109 H 24 92 12/03/20 03:00 36.8 C 109 H 20 139/81 96 12/02/20 23:42 117 H 26 H 85 L 12/02/20 23:33 113 H 12/02/20 21:55 36.6 C 114 H 18 146/73 H 90 12/02/20 19:34 36.5 C 103 H 18 134/87 92 12/02/20 19:19 101 H 24 92 Resident Activity Tracking Resident Involvement: Resident Care Provided Care Provided: Adult Hospital Medicine
[2020-12-03 07:09] LABS: Nucleated RBC # (auto) 0.17 K/uL (0-0); Nucleated RBC % (auto) 2.1 %
[2020-12-03] MEDS: ALBUT/IPRATROP 3MG/0.5MG NEB 3 ML VIAL NEB SCH ×4 (07:23→18:25)
[2020-12-03 07:53] LABS: BUN Creatinine Ratio 31.8 (10-20); Calcium 11.1 mg/dl (8.5-10.1); Creatinine Clr Calc Pharmacy 45.8 ml/min; Est GFR (African American) 63.8; Est GFR (Non-African American) 55.1; Potassium 3.5 mmol/L (3.5-5.1)
[2020-12-03 08:05] LABS: ALC (manual) 2.86 K/uL (1.2-3.4); ANC (manual) 4.21 K/uL (1.4-6.5); Anisocytosis Present; Hematocrit (blood only) 30.6 % (37-47); Hemoglobin 9.3 g/dL (12.0-16.0); Hypochromasia Present; Lymphocytes # (manual) 2.86 K/uL (1.2-3.4); Lymphocytes % (manual) 37.1 %; Mean Corpuscular Hemoglobin 27.3 pg (25-34); Mean Corpuscular Hgb Conc 30.4 g/dL (32-36); Mean Corpuscular Volume 89.7 fL (80-100); Mean Platelet Volume 10.4 fL (7.4-10.4); Monocytes # (manual) 0.55 K/uL (0.11-0.59); Monocytes % (manual) 7.2 %; Myelocytes # (manual) 0.08 K/uL (0-0); Neutrophils # (manual) 4.21 K/uL (1.4-6.5); Neutrophils % (manual) 54.7 %; Platelet Count 492 K/uL (130-400); RDW Coefficient of Variation 23.7 % (11.5-14.5); RDW Standard Deviation 76.8 fL (36.4-46.3); Red Blood Count 3.41 M/uL (4.2-5.4)
[2020-12-03] MEDS: FOLIC ACID 1 MG TAB PO SCH (08:15)
[2020-12-03] MEDS: CHOLECALCIFEROL 1,000 UNITS 25 MCG TAB PO SCH (08:15)
[2020-12-03] MEDS: CALCIUM 600MG + VIT D 400 IU TAB PO SCH ×2 (08:15→21:07)
[2020-12-03] MEDS: AZITHROMYCIN 250 MG TAB PO SCH (08:17)
[2020-12-03] MEDS: methylPREDNISolone 40 MG in SYRINGE 0 ML IV SCH ×2 (08:17→21:07)
[2020-12-03] MEDS: guaiFENesin 600 MG TABCR PO SCH ×2 (08:17→21:08)
[2020-12-03] MEDS: CEFEPIME 2,000 MG in SYRINGE 0 ML IV SCH ×2 (08:17→21:06)
[2020-12-03] MEDS: TIMOLOL MALEATE 0.5% OP SOLN 5 ML BTL OP SCH (08:17)
[2020-12-03] MEDS: PANTOprazole 40 MG TAB PO SCH (08:17)
[2020-12-03] MEDS: BENZONATATE 100 MG CAPSULE PO SCH ×3 (08:17→21:08)
[2020-12-03] MEDS: POLYETHYLENE (MIRALAX) 17 GM PACK PO SCH ×2 (08:20→21:08)
--- NOTE | 2020-12-03 15:07 | Billing Data ---
Date of Service December 03, 2020 Coding Level of Care Code 71203 Subseq Hosp Care Lvl 3
[2020-12-03 16:44] LABS: Base Excess ABG 4.9 mEq/L (-9-1.8); HCO3 ABG 31 mmol/L (19-24); Oxygen Saturation ABG 92.4 % (90-95); PCO2 ABG 57 mmHg (35-46); PO2 ABG 73 mmHg (80-95); pH ABG 7.36 (7.35-7.45)
[2020-12-03] MEDS ORDERED: AZITHROMYCIN 250 MG in DEXTROSE 5% 250 ML IV ONE (16:45)
[2020-12-03 16:48] LABS: Allen Test Pos (Pos)
--- NOTE | 2020-12-03 17:40 | Critical Care Consultation ---
Date of Consultation December 03, 2020 Assessment & Plan (1) Acute respiratory failure with hypoxia and hypercapnia: CT chest 11/29/2020 personally reviewed: Bilateral pulmonary infiltrates adele reciated, peripheral and central, minimal mediastinal adenopathy also appreciated. Increased cardiac silhouette, motion degraded study. --Acute hypoxic hypercapnic respiratory failure Secondary to multilobar pneumonia in an immunosuppressed patient given the patient is on methotrexate as well as monoclonal antibody for rheumatoid arthritis No neutropenia. S/p levofloxacin as an outpatient. ESR 57, CRP 20, procalcitonin 5.11 COVID-19 PCR negative, influenza A/B negative, nasal MRSA negative Mycoplasma and Legionella pending Positive lymphopenia, no eosinophilia. Continue with O2 supplementation to keep O2 saturation greater than 90% --Rheumatoid arthritis On methotrexate, prednisone 5 mg Upadacitinib (MAURISIO-1) inhibitor --> has been associated with upper respiratory infection --Pulmonary hypertension Type III RVSP 70 2D echo 12/01/2020: EF 65-70%, no diastolic dysfunction --Thrombocytosis Likely reactive Monitor --Hypercalcemia Follow PTH --Prophylaxis VTE: Lovenox GI: Pantoprazole Lines: Peripheral Diet: N.p.o. Plan: 12/03/2020 AB.3 on 40%. Patient is on antibiotics right now cefepime along with atypical coverage with azithromycin. She has already finished a course of levofloxacin as an outpatient. Getting Solu-Medrol 40 mg on a daily basis. She is on chronic prednisone at home Possibility MECHANICAL DESIGNER is there. But it is diagnosis of exclusion. Bronchoscopy with BAL with or without transbronchial biopsy could be thought of but with worsening respiratory status the patient will most likely get intubated. Galactomannan as well as Fungitell has been ordered. Follow BNP. I will get bio fire to make sure I am not missing other viral etiologies. Continue with incentive spirometry. Sputum culture has been ordered. Bio fire has been ordered follow it up. I have personally spent 61 minutes of critical care time in the direct management of this patient. This is a life/limb threatening event. This includes time spent evaluating patient, direct bedside care, chart review, placing orders, interpretation of diagnostic studies, discussion with consultants, patient, and family members, as well as other required patient management activities. This time is exclusive of all separately billable procedures, and teaching time and separate from and in addition to any other critical care service time. Please note the above document was generated using voice recognition software. It may contain grammatical, syntax or spelling errors. (2) Pneumonia: (3) Rheumatoid arthritis: History of Present Illness Attending Physician: Danie Dickey DO History of Present Illness 75-year-old female past medical history of rheumatoid arthritis on upadacitinib and methotrexate along with 5 mg prednisone on a daily basis was admitted to hospital because of generalized weakness and lack of appetite. Prior to admission she was treated with 7 days of levofloxacin. Pulmonary consulted because of patient's increasing requirement of oxygen. The time of examination patient is in mild respiratory distress. She is on BiPAP Saturating 96%. Respiratory rate is in mid to high 20s. Denies any nausea or vomiting. Does complain of mild anxiety. No fever or chills. No headache, no blurry vision. Allergies Allergy/AdvReac Type Severity Reaction Status Date / Time adhesive Allergy Unknown BLISTERS Verified 11/29/20 16:09 Gold Salts Allergy Unknown Unknown Uncoded 11/29/20 16:09 MYOCRISENE Allergy Unknown SPACES HER Uncoded 11/29/20 16:09 OUT Home Medications Medication Instructions Recorded Confirmed Type calcium carbonate 600 mg(1,500 1 tab PO BID 06/15/19 11/29/20 History mg)-vitamin D3 800 unit chewable tablet cholecalciferol (vitamin D3) 25 2,000 units PO DAILY #60 cap 06/15/19 11/29/20 History mcg (1,000 unit) capsule oxaprozin 600 mg tablet 600 mg PO BID #180 tab 06/15/19 11/29/20 History prednisone 5 mg tablet 5 mg PO QAM #90 tab 06/15/19 11/29/20 History hydrocortisone 2.5 % topical cream 1 appln ID DAILY PRN #30 gm 02/17/20 11/29/20 Rx with perineal applicator folic acid 1 mg tablet 1 mg PO 6XWK #90 tab 07/27/20 11/29/20 Rx methotrexate sodium 2.5 mg tablet 15 mg PO WEEKLY #72 tab 07/27/20 11/29/20 Rx Wheeled Walker #1 ea 08/22/20 11/29/20 Rx esomeprazole magnesium 40 mg 40 mg PO QAM #90 cap 08/22/20 11/29/20 Rx capsule,delayed release metaxalone 800 mg tablet 800 mg PO TID PRN tab 09/20/20 11/29/20 History timolol maleate 0.5 % eye drops 1 drp OP .24hrs ml 09/20/20 11/29/20 History codeine 10 mg-guaifenesin 100 mg/5 5 ml PO Q6H PRN #118 ml 11/21/20 11/29/20 Rx mL oral liquid benzonatate 200 mg capsule 200 mg PO TID PRN #30 cap 11/28/20 11/29/20 Rx diclofenac sodium 4 g TOPICAL QID PRN 11/29/20 11/29/20 History fluticasone propionate 2 sprays INTRANASAL DAILY PRN 11/29/20 11/29/20 History upadacitinib [Rinvoq] 15 mg PO DAILY 11/29/20 11/29/20 History Patient History Medical History Metatarsalgia Osteopenia Rheumatoid arthritis 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, lumbar region Surgical History History of back surgery Hx of cataract surgery Family History Sister Breast cancer Uterine cancer Family/Other Breast cancer Mother Breast cancer Daughter Breast cancer Brother Glioblastoma multiforme of brain Father Heart disease Myocardial infarction Denies family history of Ovarian cancer Prostate cancer Colorectal cancer Social History Smoking Status: Never smoker Second Hand Exposure: No; Hx Alcohol Use: No Hx Substance Use: No Preferred Language: [place] Communication Ability: Effective Plate Put In Worker Required: No Beliefs That Will Affect Care: None marital status: Current Living Situation: Spouse current occupational status: employed current occupation: [employer] Other Information That Helps Us Care for You: No Feels Safe at Home: Yes Safety Concerns: Feels Safe At This Time Seatbelt Use: always Assistive Devices: Walker Review of Systems Review of Systems: All systems reviewed & are unremarkable except as noted in HPI & below Physical Exam Physical Exam: Constitutional: Respiratory distress HEENT: EOMI, PERRLA Respiratory system: Decreased air entry bilaterally, no wheeze, no rhonchi, positive crackles bilateral lower lobes CVS: S1-S2 positive, tachycardia Abdomen: Soft, nontender, nondistended, positive bowel sounds x4 Extremities: +2 pulses bilaterally radialis/ dorsalis pedis, no cyanosis, +1 edema Neuro: Awake alert oriented x3 Psych: Normal mood and affect G/U: No Marcelino Skin: no rashes, warm and dry Lymphatic: no cervical or axillary lymphadenopathy Results & Data Results & Data ([facility]) Vital Signs (Past 12 Hours) Vital Signs Temp Pulse Pulse Resp BP Pulse Ox 12/03/20 16:02 109 H 34 H 93 12/03/20 15:56 36.8 C 81 18 161/78 H 12/03/20 15:50 110 H 22 83 L 12/03/20 15:04 106 H 12/03/20 11:23 88 22 95 12/03/20 11:22 88 22 95 12/03/20 11:06 36.4 C L 85 20 148/89 H 100 12/03/20 07:47 102 H 12/03/20 07:26 105 H 26 H 90 12/03/20 07:24 105 H 26 H 90 12/03/20 07:13 36.5 C 112 H 20 169/95 H 88 L 12/03/20 06:44 12/03/20 06:44 Coding Level of Care Code Critical Care 1st 30-74 mins Diagnoses Acute respiratory failure with hypoxia and hypercapnia J96.01; J96.02 Pneumonia J18.9 Rheumatoid arthritis M05.9 Rheumatoid arthritis location: unspecified site Rheumatoid factor presence: with rheumatoid factor Time Spent (min) 61 (1) Rheumatoid arthritis Rheumatoid arthritis location: unspecified site Rheumatoid factor presence: with rheumatoid factor Qualified Code(s): M05.9 - Rheumatoid arthritis with rheumatoid factor, unspecified
[2020-12-03 18:45] LABS: Mean Corpuscular Hgb Conc 29.9 g/dL (32-36); Mean Platelet Volume 10.7 fL (7.4-10.4); Nucleated RBC # (auto) 0.24 K/uL (0-0); Nucleated RBC % (auto) 3.5 %; Platelet Count 559 K/uL (130-400)
[2020-12-03] MEDS ORDERED: SODIUM CHLORIDE 0.9% NEBU SOLN 3 ML NEB SCH (19:00)
[2020-12-03 19:02] LABS: BUN Creatinine Ratio 34.8 (10-20); Calcium 10.9 mg/dl (8.5-10.1); Creatinine Clr Calc Pharmacy 45.8 ml/min; Est GFR (African American) 63.8; Est GFR (Non-African American) 55.1; Potassium 3.7 mmol/L (3.5-5.1)
[2020-12-03 19:42] LABS: Hematocrit (blood only) 30.8 % (37-47); Hemoglobin 9.2 g/dL (12.0-16.0); Mean Corpuscular Hemoglobin 27.1 pg (25-34); Mean Corpuscular Volume 90.9 fL (80-100); RDW Standard Deviation 78.1 fL (36.4-46.3); Red Blood Count 3.39 M/uL (4.2-5.4); White Blood Count 6.94 K/uL (4.8-10.8)
[2020-12-03 19:52] LABS: ALC (manual) 2.61 K/uL (1.2-3.4); ANC (manual) 3.55 K/uL (1.4-6.5); Anisocytosis Present; Eosinophils # (manual) 0.06 K/uL (0-0.5); Eosinophils % (manual) 0.9 %; Giant Platelets 2+; Hypochromasia Present; Lymphocytes # (manual) 2.61 K/uL (1.2-3.4); Lymphocytes % (manual) 37.6 %; Metamyelocytes # (manual) 0.18 K/uL (0-0); Metamyelocytes % (manual) 2.6 %; Monocytes # (manual) 0.47 K/uL (0.11-0.59); Monocytes % (manual) 6.8 %; Myelocytes # (manual) 0.06 K/uL (0-0); Myelocytes % (manual) 0.9 %; Neutrophils # (manual) 3.55 K/uL (1.4-6.5); Neutrophils % (manual) 51.2 %
[2020-12-03 20:04] LABS: CoV2 Total Antibody Negative (Negative)
--- NOTE | 2020-12-03 20:43 | XRay Report ---
SINGLE VIEW CHEST CLINICAL HISTORY: Multifocal pneumonia. FINDINGS: An AP, portable, upright chest radiograph is compared to study dated 11/30/2020 and correlat ed with chest CT dated 11/29/2020. The cardiomediastinal silhouette is unremarkable noting atheroscler otic calcification of the thoracic aorta. Diffuse/multifocal airspace consolidation is seen throughou t both lungs. This is unchanged from previous. No large pleural effusion or pneumothorax is seen. The skeletal structures are osteopenic. The bony thorax is grossly intact. IMPRESSION: Multifocal airspace consolidation throughout both lungs has not significantly changed fro m 11/30/2020. ACT 112: Negative or not required by law. Electronically signed by: Juanito German M.D. 12/03/2020 8:41 PM
[2020-12-03] MEDS: ENOXAPARIN INJ 40 MG/0.4 ML SYR SQ SCH (21:06)
[2020-12-03 21:17] LABS: Adenovirus PCR Not Detected (NotDetected); Bordetella parapertussis PCR Not Detected (NotDetected); Bordetella pertussis PCR Not Detected (NotDetected); Chlamydia pneumoniae PCR Not Detected (NotDetected); Coronavirus 229E PCR Not Detected (NotDetected); Coronavirus CoV-2 (COVID19)PCR Not Detected (NotDetected); Coronavirus HKU1 PCR Not Detected (NotDetected); Coronavirus NL63 PCR Not Detected (NotDetected); Coronavirus OC43PCR Not Detected (NotDetected); Human Metapneumovirus PCR Not Detected (NotDetected); Influenza A PCR Not Detected (NotDetected); Influenza B PCR Not Detected (NotDetected); Mycoplasma pneumoniae PCR Not Detected (NotDetected); Parainfluenza Virus 1 PCR Not Detected (NotDetected); Parainfluenza Virus 2 PCR Not Detected (NotDetected); Parainfluenza Virus 3 PCR Not Detected (NotDetected); Parainfluenza Virus 4 PCR Not Detected (NotDetected); Respiratory Syncytial VirusPCR Not Detected (NotDetected)
[2020-12-03 21:32] LABS: Rhinovirus/Enterovirus PCR DETECTED (NotDetected)
[2020-12-04 04:44] LABS: iSTAT Allen Test Pass; iSTAT Art Bld Gas pCO2 Correct 69 mmHg (35-46); iSTAT Art Bld Gas pH Corrected 7.299 (7.35-7.45); iSTAT Arterial Blood Gas HCO3 34 meg/L (19-24); iSTAT Arterial Blood Gas pCO2 70 mmHg (35-46); iSTAT Arterial Blood Gas pH 7.29 (7.35-7.45); iSTAT Arterial Blood Gas pO2 94 mmHg (80-95); iSTAT Arterial Blood Gas pO2 C 91; iSTAT Carbon Dioxide 36 mmol/L (24-31); iSTAT FiO2 100 %; iSTAT Hematocrit 26 % (37-47); iSTAT Hemoglobin 8.8 g/dl (12.0-16.0); iSTAT Potassium 3.9 mmol/L (3.3-5.0); iSTAT Site R Radial; iSTAT Sodium 140 mmol/L (135-144)
[2020-12-04 05:04] LABS: Hematocrit (blood only) 29.9 % (37-47); Hemoglobin 8.6 g/dL (12.0-16.0); Mean Corpuscular Hemoglobin 26.1 pg (25-34); Mean Corpuscular Hgb Conc 28.8 g/dL (32-36); Mean Corpuscular Volume 90.9 fL (80-100); Mean Platelet Volume 10.5 fL (7.4-10.4); Nucleated RBC % (auto) 4.2 %; Platelet Count 565 K/uL (130-400); RDW Coefficient of Variation 24.6 % (11.5-14.5); RDW Standard Deviation 80.1 fL (36.4-46.3); Red Blood Count 3.29 M/uL (4.2-5.4); White Blood Count 7.08 K/uL (4.8-10.8)
[2020-12-04 05:13] LABS: BUN Creatinine Ratio 38.8 (10-20); Calcium 10.5 mg/dl (8.5-10.1); Creatinine Clr Calc Pharmacy 49.4 ml/min; Est GFR (African American) 69.7; Est GFR (Non-African American) 60.1
[2020-12-04 05:14] LABS: Phosphorus 3.2 mg/dl (2.5-4.9)
[2020-12-04 06:44] LABS: ALC (manual) 2.42 K/uL (1.2-3.4); ANC (manual) 3.48 K/uL (1.4-6.5); Anisocytosis Present; Giant Platelets 1+; Hypochromasia Present; Lymphocytes # (manual) 2.42 K/uL (1.2-3.4); Lymphocytes % (manual) 34.2 %; Monocytes # (manual) 0.74 K/uL (0.11-0.59); Monocytes % (manual) 10.5 %; Myelocytes # (manual) 0.43 K/uL (0-0); Myelocytes % (manual) 6.1 %; Neutrophils # (manual) 3.48 K/uL (1.4-6.5); Neutrophils % (manual) 49.2 %
[2020-12-04] MEDS: ALBUT/IPRATROP 3MG/0.5MG NEB 3 ML VIAL NEB SCH ×4 (07:21→19:57)
--- NOTE | 2020-12-04 07:26 | XRay Report ---
XR chest 1V portable CLINICAL HISTORY: Multifocal pneumonia COMPARISON STUDY: 12/03/2010 FINDINGS: The cardiac and mediastinal contours remain stable. There is slight progression in the exte nsive bilateral multifocal airspace opacities consistent with a multifocal pneumonia. No large pleura l effusions are visualized. There is no pneumothorax.[ IMPRESSION: Extensive bilateral multifocal pulmonary airspace opacities slightly progressive when com pared with the prior study ACT 112: Negative or not required by law. Electronically signed by: Alcides Hayden M.D. 12/04/2020 7:25 AM
[2020-12-04] MEDS ORDERED: STAT IV Infusion **Titration per Protocol STA ×3 (07:59→10:53)
[2020-12-04] MEDS ORDERED: NOREPINEPHRINE/D5W 8 MG/508 ML BAG IV SCH (08:00)
[2020-12-04] MEDS ORDERED: RAPID SEQUENCE INDUCTION BAG ONE (08:09)
--- NOTE | 2020-12-04 08:14 | Critical Care Progress Note ---
Date of Service December 04, 2020 Assessment & Plan (1) Acute respiratory failure with hypoxia and hypercapnia: This patient was discussed on multidisciplinary rounds. Neurologic: No issues currently. The patient will be sedated with propofol. Pain control will be with fentanyl. Pulmonary: We are going to proceed with intubation and mechanical ventilation. We will initiate lung protective ventilation strategy with a low tidal volume and high PEEP. We will likely perform bronchoscopy to evaluate for infectious etiology given her immunocompromised state. Solu-Medrol 40 mg twice daily was started yesterday for the possibility of organizing pneumonia. Cardiovascular: She does have evidence of severe pulmonary hypertension on her most recent echo. Possibly related to WHO group 3. Difficult to rule out Group 1 without a right heart cath. Pulmonary artery systolic pressures may also acutely be elevated due to her being in ARDS. She appears fairly euvolemic on exam today. Gastrointestinal: We will initiate tube feeds after intubation. We will start her on IV Protonix. Renal: BUN is creeping upwards. We will keep an eye on this. Otherwise renal function has been within normal limits. Infectious disease: Blood and urine cultures are negative to date. Procalcitonin is trending downwards. Beta glucan is pending. [place] panel was positive for enterovirus. We will send for cultures from the bronchoscopy. Will also send Aspergillus galactomannan. Possibility of PCP also remains. Continue cefepime. MRSA screen was negative. Hematologic: Hemoglobin is 8.6 which is stable from previous. Likely anemia of chronic disease. Platelet count is elevated to 565,000. Thrombocytosis likely acute phase reaction. No significant eosinophilia noted on CBC. Endocrine: Glucose management per ICU pharmacist. Lines and tubes: Marcelino catheter in place, 1 peripheral IV. VTE prophylaxis: 40 mg Lovenox every afternoon CODE STATUS: Full code Family at bedside: Patient's was updated over the phone and he agrees with the plan to proceed with intubation, bronchoscopy and possible central line placement if needed. Disposition: Remain in the ICU I have personally spent 58 minutes of critical care time in the direct management of this patient. This is a life/limb threatening event. This includes time spent evaluating patient, direct bedside care, chart review, placing orders, interpretation of diagnostic studies, discussion with consultants, patient, and family members, as well as other required patient management activities. This time is exclusive of all separately billable procedures, and teaching time and separate from and in addition to any other critical care service time. Thank you for allowing us to participate in the care of this patient. (2) Pneumonia: (3) Rheumatoid arthritis: Admission and Anticipated Discharge Date Admission Date: November 29, 2020 Subjective Patient seen and examined this morning. She is quite lethargic. She feels short of breath. She is able to follow my commands and pipe smoking machine offbearer my fingers and wiggle her toes. She was able to come off the BiPAP mask last night 3 times, but desaturated to the 60s and 70s on nasal cannula. I also discussed the patient with the bedside nurse. Review of Systems Review of Systems: All systems reviewed & are unremarkable except as noted in HPI & below Results & Data Results & Data ([facility]) Vital Signs (Past 12 Hours) Vital Signs Temp Pulse Pulse Resp BP Pulse Ox 12/04/20 07:25 102 H 102 H 28 H 97 12/04/20 06:12 102 H 26 H 108/65 95 12/04/20 05:12 99 H 27 H 116/79 91 12/04/20 05:00 101 H 12/04/20 04:12 104 H 32 H 118/65 99 12/04/20 04:00 97.7 F 12/04/20 03:36 99 H 28 H 99 12/04/20 03:13 101 H 29 H 99 12/04/20 03:12 102 H 28 H 103/65 99 12/04/20 03:00 99 12/04/20 02:12 106 H 28 H 128/69 98 12/04/20 02:00 93 12/04/20 01:13 107 H 29 H 93 12/04/20 01:12 108 H 30 H 116/69 94 12/04/20 01:00 91 12/04/20 00:13 100 H 28 H 96 12/04/20 00:12 100 H 26 H 134/70 97 12/04/20 00:00 97.5 F L 103 H 25 H 93 12/03/20 23:23 100 H 32 H 96 12/03/20 23:12 100 H 30 H 132/78 97 12/03/20 23:00 103 H 37 H 96 12/03/20 22:12 98.2 F 98 H 34 H 144/86 H 92 12/03/20 22:00 100 H 35 H 94 12/03/20 21:13 101 H 32 H 94 12/03/20 21:12 102 H 34 H 136/87 94 12/03/20 21:00 102 H 32 H 95 I personally reviewed the chest x-rays, vital signs and labs. Coding Level of Care Code Critical Care 1st 30-74 mins Diagnoses Acute respiratory failure with hypoxia and hypercapnia J96.01; J96.02 Pneumonia J18.9 Rheumatoid arthritis M05.9 Rheumatoid arthritis location: unspecified site Rheumatoid factor presence: with rheumatoid factor Time Spent (min) 58 (1) Rheumatoid arthritis Rheumatoid arthritis location: unspecified site Rheumatoid factor presence: with rheumatoid factor Qualified Code(s): M05.9 - Rheumatoid arthritis with rheumatoid factor, unspecified
[2020-12-04] MEDS: CEFEPIME 2,000 MG in SYRINGE 0 ML IV SCH ×2 (08:22→20:29)
[2020-12-04] MEDS: TIMOLOL MALEATE 0.5% OP SOLN 5 ML BTL OP SCH (08:23)
--- NOTE | 2020-12-04 08:40 | Procedure Note ---
Procedure Note Date of Service December 04, 2020 Note INTUBATION PROCEDURE NOTE: Dr. Laci Rios A time-out was completed verifying correct patient, procedure, site, positioning. Patient was evaluated and required intubation for hypoxemic respiratory failure. Sedative agent used: 20 mg Paralysis agent used: 50 mcg Consent obtained from her and signed and placed on chart. Number of attempts: 1 The patient was prepared in the appropriate fashion. Sedation was achieved utilizing etomidate and rocuronium. The patient was easily ventilated using [id number] to achieve adequate oxygenation. A 7.5 Tajik endotracheal tube was placed under glide scope to 22 cm at the lip. The stylette was removed and balloon was inflated with 10mL of air. Appropriate Colorimetric change was appreciated. Bilateral breath sounds were heard without air sounds in the abdomen. Post Intubation Chest X-ray ordered Patient tolerated the procedure well and there were no immediate complications. Coding CPT Codes Resuscitation - Resuscitation: 11723 Endotracheal Intubation, emergency ([id number]) [facility] [place] Codes (Charges) Resuscitation Resuscitation: 57310 Endotracheal Intubation, emergency
[2020-12-04] MEDS: POLYETHYLENE (MIRALAX) 17 GM PACK PO SCH ×2 (08:42→20:29)
[2020-12-04] MEDS: CALCIUM 600MG + VIT D 400 IU TAB PO SCH ×2 (08:42→20:29)
[2020-12-04] MEDS: CHOLECALCIFEROL 1,000 UNITS 25 MCG TAB PO SCH (08:42)
[2020-12-04] MEDS ORDERED: PROPOFOL IV EMULSION 10 MG/ML 100 ML VIAL IV ONE (08:42)
[2020-12-04] MEDS: BENZONATATE 100 MG CAPSULE PO SCH (08:42)
[2020-12-04] MEDS: FOLIC ACID 1 MG TAB PO SCH (08:42)
[2020-12-04] MEDS: guaiFENesin 600 MG TABCR PO SCH (08:42)
[2020-12-04] MEDS: propofoL 1,000 MG/100 ML VIAL IV SCH ×2 (08:45→20:54)
--- NOTE | 2020-12-04 09:30 | Procedure Note ---
Procedure Note Date of Service December 04, 2020 Supervising Physician Co-Signing Physician Notes PREOPERATIVE DIAGNOSIS: Acute hypoxemic respiratory failure with multifocal pna POSTOPERATIVE DIAGNOSIS: Same as above PROCEDURE PERFORMED: Flexible fiberoptic bronchoscopy with bronchoalveolar lavage from right middle lobe COMPLICATIONS: None. INDICATION: Evaluate for infectious etiology PROCEDURE: Consent was obtained from the due to the patient's condition. Consent was countersigned by the nurse. Patient was intubated prior to the procedure. The scope was inserted via the endotracheal tube. The niurka was sharp. The ET tube was approximately 3 cm above the niurka. There was moderate amounts of thick white secretions noted along the endotracheal tube. There were no other findings including mass or anatomic distortion. The bronchoscope was subsequently withdrawn and advanced into the left mainstem. Again, each segment and subsegment was well visualized. No specific masses or other lesions were identified throughout the tracheobronchial tree on the left. There was moderate amounts of thick white secretions noted. The bronchoscope was then wedged in the right middle lobe and bronchoalveolar lavage samples were obtained. 160 ml of saline was instilled and 105 ml of fluid was aspirated back. Sequential aliquots demonstrated increasingly bloody secretions from the aspirate. The bronchoscope was withdrawn and the area was suctioned clear. The bronchoscope was then withdrawn to the mainstem. The area was suctioned clear. The patient tolerated the procedure well without evidence of desaturation or complications. Bronchoalveolar lavage samples were sent for cell count, Gram stain and bacterial culture, AFB culture and smear, fungal culture and smear, Aspergillus galactomannan and cytology. There was evidence of diffuse alveolar hemorrhage based on sequential aliquots being aspirated suggesting increasing bloody secretions. Recommendations: We will start 125 mg every 6 hours of IV Solu-Medrol. We will continue this for 3 days and then will wean down the Solu-Medrol dose. We will check an DANIAL panel. Coding CPT Codes Pulmonary/Thoracic - Pulmonary and Thoracic: 23436 Dx bronchoscopy/BAL ([id number]) [facility] [place] Procedure Codes (Charges) Pulmonary/Thoracic Procedure 1: Pulmonary and Thoracic: 81754 Dx bronchoscopy/BAL
[2020-12-04] MEDS: methylPREDNISolone 40 MG in SYRINGE 0 ML IV SCH (10:01)
[2020-12-04] MEDS: methylPREDNISolone 125 MG in SYRINGE 0 ML IV SCH ×3 (10:41→20:30)
[2020-12-04] MEDS: fentaNYL DRIP 1,250 MCG/250 ML BAG IV SCH ×2 (10:42→23:52)
[2020-12-04] MEDS ORDERED: PROPOFOL BOLUS FROM BAG IV PRN (10:53)
[2020-12-04] MEDS ORDERED: PANTOprazole 40 MG in SYRINGE 0 ML IV SCH (11:00)
[2020-12-04 11:12] LABS: iSTAT Allen Test Pass; iSTAT Art Bld Gas pCO2 Correct 52 mmHg (35-46); iSTAT Art Bld Gas pH Corrected 7.397 (7.35-7.45); iSTAT Arterial Blood Gas HCO3 32 meg/L (19-24); iSTAT Arterial Blood Gas pCO2 53 mmHg (35-46); iSTAT Arterial Blood Gas pH 7.39 (7.35-7.45); iSTAT Arterial Blood Gas pO2 58 mmHg (80-95); iSTAT Arterial Blood Gas pO2 C 56; iSTAT Carbon Dioxide 34 mmol/L (24-31); iSTAT FiO2 80 %; iSTAT Hematocrit 27 % (37-47); iSTAT Hemoglobin 9.2 g/dl (12.0-16.0); iSTAT Potassium 3.8 mmol/L (3.3-5.0); iSTAT Site R Radial; iSTAT Sodium 139 mmol/L (135-144)
[2020-12-04] MEDS: PANTOprazole 40 MG in SYRINGE 0 ML IV SCH ×2 (12:09→20:30)
[2020-12-04] MEDS: INSULIN ASPART 100 UNITS/ML 3 ML PEN SC SCH ×3 (12:21→20:09)
[2020-12-04] MEDS ORDERED: PEPTAMEN INTENSE VHP 1.0 CAL 1,000 ML BAG OG SCH (13:00)
[2020-12-04] MEDS: TUBE FEEDING WATER FLUSH GT SCH ×2 (13:01→17:22)
[2020-12-04 13:03] LABS: Fluid Mono/Macrophage 5 %; Neutrophil Body Fluid Man 16 %
[2020-12-04 13:04] LABS: Lymphocyte Body Fluid Man 79 %
--- NOTE | 2020-12-04 14:46 | Medical Student Progress Note ---
Date of Service December 04, 2020 Assessment & Plan Admission and Anticipated Discharge Date Admission Date: November 29, 2020 Ms. Dumont is a 75 y/o female with a pmhx of RA (on daily prednisone and immunologics) with no known underlying lung disease who was admitted on 11/29/2020 for severe community acquired pneumonia with new acute hypoxia, sepsis and hypercapnia, now s/p intubation and admitted to the ICU. -g-j-w-s-e-n-e-d- -t-o- -a-c-u-t-e- -s-v-x-o-x-i-a-,- -i-m-w-m-j-j-a-p-n-i-a- -a-n-d- -z-k-h-s-i-s-.- # Severe Community Acquired Pneumonia causing Septic Shock with Acute Hypoxic and Hypercapnic Respiratory Failure worsening - Failed outpatient treatment of CAP with levofloxacin - COVID negative 11/29/20 - MRSA nares, Blood, urine cultures all negative - Bio fire panel was positive for enterovirus - Pt experienced increased respiratory distress -o-n- despite trials of high flow NC, Bipap and pulmonary toilet - X-ray showed progressive infiltrates on 12/04/2020 - Intubated and mechanically ventilated this am (12/04/2020), sedated with propofol drip - BAL was completed today, pending cultures. Pending Galactomannan and Fungitell to r/o fungal pneumonia - Continue Cefepime for gram+/- coverage and pseudomonas given pt. has immunosuppression from RA tx - Completed course of Azithromycin - continue duonebs shonna, prn xopenex, guafensin for pulm toilet +/- chest PT # Pulmonary hypertension - Could be acute due to PNA, or more chronic due to undiagnosed LOLA - TTE showed RSVP 70mmHg - Recommend outpatient polysomnogram and potential repeat TTE after hospital discharge/pna resolution #Rheumatoid Arthritis - Stress dose of 40 mg Solumedrol daily - normally on 5 mg PO pred daily - hold all home predisone, MTX, and immunologics #Anemia - Likely anemia of chronic disease from RA - Hemoglobin downtrended but stable at 8.6 (12/04/2019). - Will continue to monitor CBCs Diet: - OG Tube feeds while intubated - IV Protonix for GI ppx - Glucose management per -I-C-U- -n-u-r-s-e- ICU glycemic protocol Lines and tubes: - Marcelino catheter in place - 1 peripheral IV, central line, art line Dispo: ICU. will likely need SNF vs rehab after discharge FEN/GI: Tube feeds, protonix IV for GI ppx VTE prophylaxis: 40 mg Lovenox CODE STATUS: Full code Supervising Attestation Attending attestation Pt seen and examined in concert with Std Dr. Redmond, Dr. Singleton. In agreement with the documented findings as noted in the resident documentation with any exceptions or additions as noted here. Patient sedated on vent. On examination, S1/S2 nl tachycardia no MCG. Ventilated, coarse breath sounds bilaterally. Acute hypoxic respiratory failure on ventilator - ICU consultation for vent management - Xopenex, albuterol, mucinex, steroid therapy (below) Septic shock - pressor management with norepi by protocol Severe community acquired pneumonia in the setting of immune suppression - pending galactomannan and fungitell. Continue cefepime Rheumatoid arthritis - chronic steroids with current dosing of methylpred IV q6 Nutrition - PEG in place w/ tube feeds Else see student/resident documentation as noted. Subjective Unable to obtain because pt. was getting intubated. Review of Systems Review of Systems: Unobtainable due to endotracheal tube Physical Exam 2 Physical Exam: General: Lying in hospital bed with ET tube in place. Const: 75 yo F sedated, intubated, responsive to pain, Cardiac: RRR, no mrg, Resp: intubated, Coarse breath sounds BL, mechanically ventilated GI: +BS, nontender, nondistended : Marcelino cath in place [facility] & [facility] ([facility]) Vital Signs (Past 12 Hours) Vital Signs Temp Pulse Pulse Resp BP Pulse Ox 12/04/20 11:11 86 28 H 92 12/04/20 10:48 85 116/68 92 12/04/20 10:33 84 122/64 93 12/04/20 10:18 87 125/68 92 12/04/20 10:03 86 120/66 93 12/04/20 10:00 86 94 12/04/20 09:48 86 28 H 134/86 100 12/04/20 09:45 86 28 H 100 12/04/20 09:31 95 H 28 H 167/100 H 100 12/04/20 09:29 99 H 28 H 158/98 H 100 12/04/20 09:27 102 H 29 H 139/106 H 100 12/04/20 09:25 94 H 28 H 149/86 H 100 12/04/20 09:23 96 H 28 H 143/93 H 99 12/04/20 09:21 100 H 28 H 130/92 100 12/04/20 09:19 103 H 28 H 157/98 H 100 12/04/20 09:17 103 H 27 H 156/109 H 100 12/04/20 09:16 108 H 27 H 100 12/04/20 09:15 107 H 28 H 172/108 H 100 12/04/20 09:13 89 28 H 151/90 H 100 12/04/20 09:11 94 H 28 H 149/84 H 100 12/04/20 09:09 85 28 H 137/91 100 12/04/20 09:07 89 28 H 149/97 H 100 12/04/20 09:05 83 28 H 133/79 100 12/04/20 09:03 85 28 H 149/83 H 100 12/04/20 09:01 86 28 H 136/88 100 12/04/20 09:00 85 28 H 100 12/04/20 08:59 84 28 H 134/79 100 12/04/20 08:57 90 28 H 134/78 100 12/04/20 08:55 85 28 H 142/79 H 100 12/04/20 08:53 95 H 28 H 155/95 H 100 12/04/20 08:51 101 H 25 H 152/96 H 100 12/04/20 08:49 93 H 24 148/87 H 100 12/04/20 08:47 92 H 22 150/88 H 100 12/04/20 08:46 91 H 27 H 100 12/04/20 08:45 91 H 18 144/83 H 100 12/04/20 08:43 93 H 19 142/79 H 99 12/04/20 08:41 94 H 25 H 121/74 100 12/04/20 08:39 99 H 20 126/75 100 12/04/20 08:37 100 H 17 125/85 100 12/04/20 08:35 106 H 21 146/88 H 91 12/04/20 08:33 101 H 25 H 136/68 100 12/04/20 08:31 98 H 24 115/79 100 12/04/20 08:30 100 H 27 H 100 12/04/20 08:29 101 H 24 130/68 100 12/04/20 08:27 99 H 26 H 119/74 100 12/04/20 08:15 103 H 29 H 93 12/04/20 08:13 104 H 31 H 81/59 L 93 12/04/20 08:00 105 H 22 88 L 12/04/20 07:45 100 H 26 H 93 12/04/20 07:30 102 H 27 H 94 12/04/20 07:25 102 H 102 H 28 H 97 12/04/20 07:15 98 H 27 H 98 12/04/20 07:12 98 H 25 H 105/63 100 12/04/20 07:00 95 H 26 H 98 12/04/20 06:12 102 H 26 H 108/65 95 12/04/20 05:12 99 H 27 H 116/79 91 12/04/20 05:00 101 H 12/04/20 04:12 104 H 32 H 118/65 99 12/04/20 04:00 36.5 C 12/04/20 03:36 99 H 28 H 99 12/04/20 03:13 101 H 29 H 99 12/04/20 03:12 102 H 28 H 103/65 99 12/04/20 03:00 99
[2020-12-04] MEDS ORDERED: ETOMIDATE 2 MG/ML 20 ML VIAL IV ONE (16:24)
[2020-12-04] MEDS ORDERED: ROCURONIUM BROMIDE 10 MG/ML 5 ML VIAL IV ONE (16:24)
[2020-12-04] MEDS ORDERED: SODIUM CHLORIDE 0.9% 500 ML IV SCH (17:00)
[2020-12-05] MEDS: TUBE FEEDING WATER FLUSH GT SCH ×2 (00:02→05:04)
[2020-12-05] MEDS: INSULIN ASPART 100 UNITS/ML 3 ML PEN SC SCH ×2 (00:02→04:27)
[2020-12-05] MEDS: methylPREDNISolone 125 MG in SYRINGE 0 ML IV SCH (04:27)
[2020-12-05 05:08] LABS: iSTAT Allen Test Pass; iSTAT Arterial Blood Gas HCO3 29 meg/L (19-24); iSTAT Arterial Blood Gas pCO2 57 mmHg (35-46); iSTAT Arterial Blood Gas pH 7.32 (7.35-7.45); iSTAT Arterial Blood Gas pO2 72 mmHg (80-95); iSTAT Carbon Dioxide 31 mmol/L (24-31); iSTAT FiO2 70 %; iSTAT Site R Radial
[2020-12-05 05:34] LABS: Mean Corpuscular Hgb Conc 29.6 g/dL (32-36); Mean Platelet Volume 10.7 fL (7.4-10.4); Platelet Count 664 K/uL (130-400)
[2020-12-05 06:00] LABS: BUN Creatinine Ratio 36.4 (10-20); Creatinine Clr Calc Pharmacy 34.3 ml/min; Est GFR (African American) 44.8; Est GFR (Non-African American) 38.7; Magnesium 3.2 mg/dl (1.8-2.4); Phosphorus 2.7 mg/dl (2.5-4.9); Potassium 3.7 mmol/L (3.5-5.1)
[2020-12-05 06:24] LABS: Hematocrit (blood only) 29.4 % (37-47); Hemoglobin 8.7 g/dL (12.0-16.0); Mean Corpuscular Hemoglobin 27.4 pg (25-34); Mean Corpuscular Volume 92.5 fL (80-100); Nucleated RBC # (auto) 1.92 K/uL (0-0); Nucleated RBC % (auto) 17.5 %; RDW Coefficient of Variation 24.7 % (11.5-14.5); RDW Standard Deviation 82.5 fL (36.4-46.3); Red Blood Count 3.18 M/uL (4.2-5.4); White Blood Count 10.97 K/uL (4.8-10.8)
[2020-12-05 06:44] LABS: ALC (manual) 2.64 K/uL (1.2-3.4); ANC (manual) 5.19 K/uL (1.4-6.5); Anisocytosis Present; Basophilic Stippling Occasional; Giant Platelets 1+; Lymphocytes # (manual) 2.64 K/uL (1.2-3.4); Lymphocytes % (manual) 24.1 %; Metamyelocytes # (manual) 0.49 K/uL (0-0); Metamyelocytes % (manual) 4.5 %; Monocytes # (manual) 1.08 K/uL (0.11-0.59); Monocytes % (manual) 9.8 %; Myelocytes # (manual) 1.57 K/uL (0-0); Myelocytes % (manual) 14.3 %; Neutrophils # (manual) 5.19 K/uL (1.4-6.5); Neutrophils % (manual) 47.3 %; Ovalocytes 1+; Polychromasia 1+; Toxic Vacuolation Occasional
[2020-12-05] MEDS: ALBUT/IPRATROP 3MG/0.5MG NEB 3 ML VIAL NEB SCH (08:05)
--- NOTE | 2020-12-05 08:10 | XRay Report ---
SINGLE VIEW CHEST CLINICAL HISTORY: Multifocal pneumonia. Intubation. FINDINGS: 2 AP, portable, upright chest radiographs are compared to study dated 12/04/2020 and correla jason with chest CT dated 11/29/2020. An endotracheal tube has been placed. The tip projects 2.5 cm abov e the niurka. An enteric tube has been placed. The tip projects below the diaphragm. The heart is top normal for projection noting atherosclerotic calcification of the thoracic aorta. Diffuse/multifocal airspace consolidation is seen throughout both lungs. This is unchanged from previous. There is a mo derate right-sided pneumothorax which is new from yesterday. No large pleural effusion is seen. The s keletal structures are osteopenic. The bony thorax is grossly intact. IMPRESSION: 1. Endotracheal and enteric tubes have been placed as above. 2. Moderate right pneumothorax. This is new from previous. 3. Multifocal airspace consolidation throughout both lungs is unchanged. ACT 112: Positive. There are findings on this exam that require communication between the performing entity and the patient following Patient Test Result Information Act ([place] Act 112) guidelines. Electronically signed by: Juanito German M.D. 12/05/2020 8:09 AM
[2020-12-05] MEDS ORDERED: MIDAZOLAM HCL 5 MG/ML 1 ML VIAL ONE (08:39)
[2020-12-05] MEDS ORDERED: ATROPINE SULFATE 0.1 MG/ML 10ML SYR IV ONE (08:56)
[2020-12-05] MEDS ORDERED: ATROPINE SULFATE 0.1 MG/ML 10ML SYR IV STA ×2 (08:59→15:55)
--- NOTE | 2020-12-05 09:19 | XRay Report ---
SINGLE VIEW CHEST CLINICAL HISTORY: Pneumothorax. Chest tube placement. FINDINGS: An AP, portable, supine chest radiograph is compared to study performed earlier the same da y 12/05/2020 and correlated with chest CT dated 11/29/2020. Endotracheal and enteric tubes are unchange d in position. The heart is top normal for projection noting atherosclerotic calcification of the tho racic aorta. Diffuse/multifocal airspace consolidation is seen throughout both lungs. This is unchang ed from previous. A right apical chest tube has been placed. No residual pneumothorax is identified. No large pleural effusion is seen. The skeletal structures are osteopenic. The bony thorax is grossly intact. IMPRESSION: 1. A right apical chest tube has been placed. No residual pneumothorax is identified. 2. Remaining lines and tubes are unchanged from previous. 3. Multifocal airspace consolidation throughout both lungs is unchanged. ACT 112: Negative or not required by law. Electronically signed by: Juanito German M.D. 12/05/2020 9:18 AM
[2020-12-05] MEDS ORDERED: SODIUM BICARB 8.4% INJ 50 MEQ/50 ML SYR IV ONE (09:36)
[2020-12-05] MEDS ORDERED: CALCIUM CHLORIDE 10% 10 ML SYR IV ONE (09:36)
--- NOTE | 2020-12-05 09:54 | Procedure Note ---
Procedure Note Date of Service December 05, 2020 Note PIGTAIL CATHETER PLACEMENT NOTE: Procedure: Pneumothorax chest tube placement Indication: Moderate-sized right pneumothorax. Anesthesia: 8 mL lidocaine 1% Written consent was obtained from the , over the phone, and placed on the chart. Timeout was done prior to the procedure. 3 mg of Versed and 50 mcg of fentanyl boluses were given prior to the procedure. Continuous propofol and fentanyl infusion during the procedure were given. Prior to procedure, chest x-ray films were reviewed by myself and demonstrated moderate sized pneumothorax. A time-out was completed verifying correct patient, procedure, site, positioning, and implant(s) or special equipment if applicable. Utilizing bedside ultrasound, chest wall was evaluated for location for optimal chest tube placement. Location between the second and third ribs were marked on the skin using gentle pressure. The right sided chest wall was prepped with chlorhexidine and draped in the typical sterile fashion. 8 mL of 1% Lidocaine without epinephrine was used to anesthetize the skin down to the dorsal surface of the second rib. There return confirmed entry into the pleural space. Lidocaine was injected into the pleural space for increased anesthetization. A small pilar was made and then the pneumothorax catheter was placed into the pleural cavity. Drain was immediately connected to pre-prepared RAMONA pleur- evac system. Pigtail was sutured securely in place and sterile dressing was applied. Chest tube was placed to -20 cmH2O suction. Patient tolerated procedure well. Blood Loss: Minimal Complications: The patient had an event with bradycardia during the procedure and ultimately underwent a cardiac arrest. See separate documentation. Post procedure Chest X-ray was ordered and reviewed by myself which demonstrated adequate placement. Coding CPT Codes Pulmonary/Thoracic - Pulmonary and Thoracic: 25306 Tube thoracostomy ([id number]) [facility] [place]arges) Pulmonary/Thoracic Procedure 1: Pulmonary and Thoracic: 03477 Tube thoracostomy
--- NOTE | 2020-12-05 10:09 | Procedure Note ---
Procedure Note Date of Service December 05, 2020 Note At approximately 930, I was inserting a pleural catheter to evacuate a right moderate-sized pneumothorax. 3 mg of Versed and 50 mcg of fentanyl were given in addition to her propofol and fentanyl infusion. Subsequently, the patient s tarted to have episodes of sinus bradycardia. We gave her 0.5 mg of atropine twice with improvement of her heart rate. She been subsequently lost pulses after approximately 10 minutes and CPR was initiated. She received several amps of epinephrine. Cardiac rhythm on the monitor was PEA throughout the cardiac arrest. She was taken off the ventilator and manual bag mask ventilation was performed through the ET tube. There was clear evidence of hemoptysis from the ET tube. Effective CPR was performed throughout the procedure. We attempted to place a right femoral arterial line, but were unsuccessful. 20 minutes of continuous CPR were performed. No shocks were given. I had a lengthy discussion over the phone with patient's family including her . They were informed of the status and agreed with termination of CPR after 20 minutes. Condolences were offered. Notably, she was on a low-dose of Levophed prior to the procedure and she was requiring 70% FiO2 and a PEEP of 10 on the ventilator. Coding CPT Codes Resuscitation - Resuscitation: 83169 Heart/lung resuscitation CPR ([id number]) [facility] [place]arges) Resuscitation Resuscitation: 11574 Heart/lung resuscitation CPR
--- NOTE | 2020-12-05 11:16 | Discharge Summary ---
Date of Service December 05, 2020 Admission HPI Per Admitting Provider Anna Marie Dumont is a 75-year-old female with rheumatoid arthritis on Rinvoq who presents to the ER with generalized weakness and lack of appetite for last 1.5 weeks. She was treated by her PCP for pneumonia 8 days ago with a 7-day course of Levaquin. She reports this usually helps with her bronchitis that occurs once every couple of years but this time she felt no improvement. Symptoms have got progressively worse during this time with increasing shortness of breath but mainly generalized bilateral weakness, poor appetite, nausea and fatigue. She takes Rinvoq and methotrexate for her rheumatoid arthritis but appropriately stopped the Rinvoq at the onset of her symptoms (she reports being on this for years). She took her methotrexate 7 days ago but missed her dose today. Due to her poor appetite and decreased oral intake she thinks she missed all her medications yesterday (although possibly took a prednisone). Associated productive cough with green/yellow sputum increasing during this time. She was tested for COVID-19 and influenza 4 days ago which was negative. She denies any fever, chills, loss of taste or smell (although does note change in smell), vomiting, headache, sore throat, diarrhea or abdominal pain. She denies any known COVID-19 contacts. In the ER chest x-ray was concerning for multifocal pneumonia. SARS-CoV-2, influenza, RSV PCR negative. CTA showed no evidence of pulmonary embolus although peripheral branches significantly degraded. Troponin was mildly elevated at 0.4. She has noted associated chest heaviness but only intermittently, none currently and mainly on coughing. Prior to her current diagnosis she reports good exercise tolerance without chest pain. She has no history of coronary artery disease but is at increased risk with her rheumatoid arthritis. She was referred to medicine for admission and ongoing management of multifocal pneumonia, hypoxia and elevated troponin. Admission Exam Per Admitting Provider Constitutional: well developed and well nourished; no acute distress Eyes: + anicteric sclerae; normal pupil size Respiratory: + cough (Productive) and able to speak in complete sentences; no respiratory distress, no labored breathing, no retractions, does not use accessory muscles and not tachypneic Auscultation: + crackles (Posteriorly throughout); no diminished lung sounds, no rales and no wheezes Cardiovascular: Rate/Rhythm: regular rate and regular rhythm Heart Sounds: no murmur Vessels: no JVD Extremities: normal capillary refill; no calf tenderness Gastrointestinal (Abdomen): normal bowel sounds, soft, nontender, no hepatosplenomegaly Musculoskeletal: no cyanosis or clubbing, extremities motor strength 5/5 Skin: no rashes, warm and dry Neurologic: moves all extremities and awake; no focal motor deficits and not confused Psychiatric: A+Ox3, euthymic affect Genitourinary: no CVA tenderness Principal Diagnosis Severe Community Acquired Pneumonia causing Sepsis and Acute Hypoxic Respiratory Failure, ARDS Discharge Exam Constitutional + ill appearing and + disheveled Eyes + dilated pupils and + fixed pupils ENMT Feeding tube, ET tube in place with blood in ET tube Respiratory agonal respirations off ventilator Cardiovascular PEA with agonal cardiac contractions on bedside ECHO Neurologic + obtunded; + does not move all extremities Comatose Patient: + response to noxious stimuli absent Discharge Data Allergies Allergy/AdvReac Type Severity Reaction Status Date / Time adhesive Allergy Unknown BLISTERS Verified 11/29/20 16:09 Gold Salts Allergy Unknown Unknown Uncoded 11/29/20 16:09 MYOCRISENE Allergy Unknown SPACES HER Uncoded 11/29/20 16:09 OUT Consultations 11/29/20 16:07 ED Decision to Admit Stat 12/03/20 18:24 Consult Vocal Music Teacher Routine Ordered Studies 11/29/20 14:06 CT angio chest PE protocol Stat 12/04/20 08:38 US point of care ultrasound Urgent Hospital Course (1) Elevated troponin: 75 yo F with hx Rheumatoid arthritis on daily prednisone therapy and immunologics, lumbar disc degeneration, hypercholesterolemia admitted for severe community acquired pneumonia with sepsis acute hypoxic respiratory failure. Underwent 2 rounds of CPR in ICU and some time after family withdrew care. Mrs. Dumont was admitted to the hospital with new onset worsening SOB and new oxygen requirement. Imaging at admission showed a multifocal pneumonia on CT Chest and CXR, with no evidence of PE. With negative MRSA nares, she was started on Cefepime and Azithromycin for broad coverage. Despite her blood cultures being negative and where WBC count steadily remaining low, her O2 reqiurement and symptoms worsened, requiring HFNC, Bipap and eventually intubation in the ICU after showing signs of a respiratory acidosis. Given her immunocompromised status, she had been started on stress dose steroids, and workup for fungal and opportunistic infections had begun in the ICU. On the , 1 day after being intubated, CXR showed a pneumothorax. During chest tube placement for PTX decompression, she became bradycardic, responded to atropine administration, but then suffered cardiac arrest, at which time a code blue was called. ROSC achieved after the code, central line and art line was placed by ICU attending, but shortly after she began bradying down again and suffered a second cardiac arrest and a second code was called. Family was updated in the interim and during the second code. They opted to withdraw care after ~25 minutes of the second code had passed, time of called at 9:37 AM. Total Time Total Time Spent Total Time Spent (In Minutes): see attending attestation Discharge Plan Discharge Items Patient Disposition: Discharge Diagnosis: ARDS, pneumonia Addtl Attending Provider Instructions: Mrs. Dumont this morning secondary to complications from her severe pneumonia and ARDS. CPR was performed initially briefly and ROSC was achieved after a bradycardic PEA. Patient went back into bradycardic PEA CPR was performed for >25 minutes, patient's dire situation was discussed with family and the decision was mutually made to stop resuscitative efforts. CPR was ceased and patient . Supervising Physician Co-Signing Physician Notes Attending attestation Pt seen and examined in concert with Dr. Dumont. In agreement with the documented findings as noted in the resident documentation with any exceptions or additions as noted here. Called to bedside at ~0845 for code blue following insertion of chest tube for newly appreciate pneumothorax. Resuscitation continued as noted in ICU documentation until discontinued at the wishes of family/POA. Else see resident documentation as noted. Total attending time spent on this patient's case during day: 45 minutes. Resident Activity Tracking Resident Involvement: Resident Care Provided Care Provided: Adult [facility]
[2020-12-06 09:56] LABS: Anti Nuclear Antibody Screen NEGATIVE (NEGATIVE)
[2020-12-06 22:27] LABS: Fungitell (1-3)-B-D-Glucan >500
--- NOTE | 2020-12-07 14:23 | Death Pronouncement Note ---
Date of Service December 05, 2020 Pronouncement Note Admission Date Admission Date: November 29, 2020 Date and Time of Date of : 12/05/20 PCOD Preliminary cause of : Cardiac arrest Contributing Factors (1) Elevated troponin: Summary Additional details: Chris magallanes called at approximately 8:45 am 12/05 for cardiac arrest after having chest tube placed to relieve pneumothorax. She was resuscitated after 2 rounds of ACLS. Family was called and notified if ongoing events. Patient underwent cardiac arrest again approximately 10 minutes later, chris magallanes was initiated again. Resuscitation continued until asked to discontinue by family/POA. At discontinuation of CPR, she was found to have no spontaneous respirations, no pulse, and had fixed and dilated pupils. Additional Data Confirmation of : no pulse, no respirations and pupils fixed and dilated Family: contacted Additional persons at bedside: other Attending/PCP notified?: Yes Attending physician: Wilfrid Echeverria MD Was code activated?: Yes Autopsy requested?: Yes Advance directives: No Resident Activity Tracking Resident Involvement: Resident Care Provided Care Provided: Adult Hospital Medicine
[2020-12-08 15:52] LABS: Aspergillus Ag, BAL Not Detected (Not Detected)
[2020-12-10 15:19] LABS: ANCA Screen Negative (Negative); Myeloperoxidase Ab <1.0 AI (<1.0); Proteinase-3 AB <1.0 AI (<1.0)
[2020-12-15 04:07] LABS: Legionella Culture Source RIGHT LUNG BIOPSY; Source RIGHT LUNG BIOPSY
--- NOTE | 2020-12-18 14:25 | Coding Query ---
CODING QUERY To promote full compliance with coding requirements relating to patient care, provider participation is requested in all cases of hydro electric station operator uncertainty. Please assist us with the question(s) below: Coding Question(s): There is documentation on the 12/05/20 Procedure Note of, "Complications: The patient had an event with bradycardia during the procedure and ultimately underwent a cardiac arrest. See separate documentation." Please specify below, in your clinical opinion, the etiology of the Cardiac Arrest. (x) Cardiac Arrest likely due to cardiac condition: Please Specify pulmonary hypertension ( x) Cardiac Arrest likely due to other condition: Please Specify acute hypoxemic respiratory failure and multifocal pneumonia ( ) Cardiac Arrest is likely a Intraoperative Complication ( ) Cardiac Arrest is of Unknown likely etiology Physician's Response(s): Thank you Karol Pederson Principal Diagnosis: "that condition established after study, to be chiefly responsible for occasioning the admission of the patient to the hospital for care." Co-Existing Principal Diagnosis: "when two or more diagnoses equally meet the criteria for principal diagnosis as determined by the circumstances of admission, diagnostic work up, and/or therapy provided, and the Alphabetic Index, Tabular List, or another coding guideline does not provide sequencing direction, any one of the diagnoses may be sequenced first." "When the physician has documented what appears to be a current diagnosis in the body of the record, but has not included the diagnosis in the final diagnostic statement, the physician should be asked whether the diagnosis should be added." ([facility] 2 QTR90. p3-4) HERMINIO
--- NOTE | 2020-12-18 15:11 | Coding Query ---
CODING QUERY To promote full compliance with coding requirements relating to patient care, provider participation is requested in all cases of battery tester uncertainty. Please assist us with the question(s) below: Coding Question(s): Please specify below, in your clinical opinion, regarding Pneumothorax. ( ) Pneumothorax is likely a postprocedural complication (x) Pneumothorax is likely other: Please Specify ARDS requiring mechanical ventilation ( ) Pneumothorax is Unspecified Physician's Response(s): Thank you Karol Pederson Principal Diagnosis: "that condition established after study, to be chiefly responsible for occasioning the admission of the patient to the hospital for care." Co-Existing Principal Diagnosis: "when two or more diagnoses equally meet the criteria for principal diagnosis as determined by the circumstances of admission, diagnostic work up, and/or therapy provided, and the Alphabetic Index, Tabular List, or another coding guideline does not provide sequencing direction, any one of the diagnoses may be sequenced first." "When the physician has documented what appears to be a current diagnosis in the body of the record, but has not included the diagnosis in the final diagnostic statement, the physician should be asked whether the diagnosis should be added." ([facility] 2 QTR90. p3-4) [facility]MINIO
== END 2020-12-05 09:37 | disposition expired | DRG 871 ==
LOC: ED 13:36 → 2N 16:52 → SUATTDRO 16:52 → 2N 17:38 → 1E 12-03 18:05